=== PATIENT | female | born 1995 | race Caucasian/White ===

== ENCOUNTER 2017-12-14 13:51 | Inpatient (IN) | payer OTHER ==
--- NOTE | 2017-12-14 15:01 | XR ---
EXAMINATION TYPE: XR ankle complete RT, XR foot complete RT DATE OF EXAM: 12/14/2017 CLINICAL HISTORY: Prior osteomyelitis after bunionectomy with recurrent surgery and amputation. Right foot pain TECHNIQUE: Frontal, lateral and oblique images of the right ankle and foot are obtained. COMPARISON: None. FINDINGS: There is no acute fracture/dislocation evident in the right ankle. The ankle mortise appe ars within normal limits. There is generalized soft tissue swelling of the right foot, moderate in de gree. Postoperative changes are seen at the first metatarsal phalangeal joint with osteolytic change and heterotopic ossification. Persistent infection is not excluded. Chronic periosteal reaction and f racture healed fracture deformities are seen of the second, third, and fourth metatarsals. Partially dilatation of the fifth metatarsal and surgical absence of the fifth phalanges are noted. IMPRESSION: Postsurgical change of the first metatarsal phalangeal joint with surrounding osteophyti c change and heterotopic ossification concerning for persistent osteomyelitis. MRI could evaluate for bone marrow replacing process or three-phase nuclear medicine bone scan. Chronic healed fracture def ormities and postsurgical changes of the midfoot and forefoot.
--- NOTE | 2017-12-14 15:23 | XR ---
EXAMINATION TYPE: XR tibia fibula RT DATE OF EXAM: 12/14/2017 CLINICAL HISTORY: Right foot bone infection and right lower extremity pain. TECHNIQUE: Two views of the right leg are obtained. COMPARISON: None. FINDINGS: There is no acute fracture or dislocation seen in the right tibia or fibula. The right kn ee and ankle joints appear within normal limits. The overlying soft tissue appears unremarkable. The visualized portions of the right foot are discussed on the right foot radiographs of the same date. IMPRESSION: There is no acute fracture or dislocation seen in the right tibia or fibula.
[2017-12-14 16:02] LABS: Basophils # (A) 0.1 k/uL (0-0.2); Basophils % (A) 0 %; Eosinophils # (A) 0.2 k/uL (0-0.7); Eosinophils % (A) 1 %; HCT 40.1 % (34.0-46.0); HGB 13.2 gm/dL (11.4-16.0); Lymphocytes # (A) 1.2 k/uL (1.0-4.8); Lymphocytes % (A) 8 %; MCH 29.4 pg (25.0-35.0); MCHC 32.8 g/dL (31.0-37.0); MCV 89.6 fL (80.0-100.0); Mean Platelet Volume 7.5; Monocytes % (A) 7 %; Neutrophils % (A) 83 %; Platelet Count 206 k/uL (150-450); RBC 4.47 m/uL (3.80-5.40); RDW 14.3 % (11.5-15.5); WBC 14.6 k/uL (4.0-11.0)
[2017-12-14 16:13] LABS: Anion Gap 8 mmol/L; Blood Urea Nitrogen 19 mg/dL (7-17); C Reactive Protein 84.3 mg/L (<10.0); Calcium 9.4 mg/dL (8.4-10.2); Carbon Dioxide 27 mmol/L (22-30); Chloride 100 mmol/L (98-107); Glucose 74 mg/dL (74-99); Sodium 135 mmol/L (137-145)
--- NOTE | 2017-12-14 16:20 | ED ---
General Adult HPI <Sotero Gay - Last Filed: 12/14/17 17:00> - General Source: patient, RN notes reviewed Mode of arrival: wheelchair Limitations: physical limitation <Adis Malcolm - Last Filed: 12/14/17 17:13> - General Chief complaint: Extremity Injury, Lower Stated complaint: Foot pain Time Seen by Provider: 12/14/17 14:30 - History of Present Illness Initial comments: 22-year-old female presents to the emergency department for a chief complaint of right foot swelling 1 days. Patient has had multiple problems in that foot before including multiple breaks, bunionectomy, and "bone infection." Patient states that she has chronic swelling but has been worse in the past day and normal. Patient denies any recent injuries but states she thinks she broke it again because it is swollen. Patient denies any fevers or chills at home. Patient has no other complaints at this time including shortness of breath, chest pain, abdominal pain, nausea or vomiting, headache, or visual changes. ( Adis Malcolm) - Related Data Home Medications Medication Instructions Recorded Confirmed Pregabalin [Lyrica] 300 mg PO BID 02/17/16 12/14/17 cloNIDine HCL 0.3 mg PO AC-TID 02/17/16 12/14/17 traMADol HCL [Tramadol HCl] 50 mg PO TID-W/MEALS PRN 02/17/16 12/14/17 Previous Rx's Medication Instructions Recorded Cephalexin [Keflex] 500 mg PO Q12HR 7 Days cap 05/30/16 Allergies Allergy/AdvReac Type Severity Reaction Status Date / Time sulfamethoxazole AdvReac Unknown Verified 12/14/17 14:31 [From Bactrim] trimethoprim [From Bactrim] AdvReac Unknown Verified 12/14/17 14:31 Review of Systems ROS Other: All systems not noted in ROS Statement are negative. <Sotero Gay - Last Filed: 12/14/17 17:00> ROS Other: All systems not noted in ROS Statement are negative. <Adis Malcolm - Last Filed: 12/14/17 17:13> ROS Statement: Those systems with pertinent positive or pertinent negative responses have been documented in the HPI. Past Medical History Past Medical History: Fibromyalgia, Pneumonia Additional Past Medical History / Comment(s): carpal tunnel. "hemmerhoids way up in my intestines". poor wound healing History of Any Multi-Drug Resistant Organisms: None Reported Past Surgical History: Orthopedic Surgery Additional Past Surgical History / Comment(s): Multiple eye surgeries for corneal injury, multiple rt foot surgeries Past Anesthesia/Blood Transfusion Reactions: No Reported Reaction Past Psychological History: Anxiety, Bipolar, Depression Smoking Status: Current every day smoker Past Alcohol Use History: None Reported Past Drug Use History: Marijuana - Past Family History Mother Family Medical History: Asthma, Hypertension Brother(s) Family Medical History: Asthma <Adis Malcolm - Last Filed: 12/14/17 17:13> General Exam Limitations: physical limitation General appearance: alert, in no apparent distress Head exam: Present: atraumatic, normocephalic, normal inspection Eye exam: Present: normal appearance ENT exam: Present: normal exam, mucous membranes moist Neck exam: Present: normal inspection, full ROM. Absent: tenderness, meningismus, lymphadenopathy Respiratory exam: Present: normal lung sounds bilaterally. Absent: respiratory distress, wheezes, rales, rhonchi, stridor Cardiovascular Exam: Present: regular rate, normal rhythm, normal heart sounds. Absent: systolic murmur, diastolic murmur, rubs, gallop, clicks Extremities exam: Present: full ROM (Full range of motion of the right ankle and digits of the right foot), tenderness (Patient has diffuse tenderness of the right foot.), normal capillary refill (Refill less than 2 seconds in the right lower extremity.), joint swelling (Patient has significant swelling of the right foot no ecchymosis.), calf tenderness (Patient does have mild Tenderness. No swelling in the calf. Negative Homans sign. No redness or warmth noted in the right calf.) <Adis Malcolm - Last Filed: 12/14/17 17:13> Vital Signs 12/14/17 14:29 Temperature 98.5 F Pulse Rate 111 H Respiratory 18 Rate Blood Pressure 103/66 O2 Sat by Pulse 99 Oximetry Medical Decision Making - Lab Data Result diagrams: 12/14/17 15:45 12/14/17 15:45 <Sotero Gay - Last Filed: 12/14/17 17:00> - Lab Data Result diagrams: 12/14/17 15:45 12/14/17 15:45 <Adis Malcolm - Last Filed: 12/14/17 17:13> - Medical Decision Making Patient reevaluated by myself, Dr. Gay. X-ray and blood work reviewed. Patient reevaluated and updated. Case was discussed in detail with Dr. Amanda sandoval , who will admit for hospital call. He does request consult with orthopedics and infectious disease. Patient does meet sepsis criteria diagnosed at 1701. Blood culture and lactic acid have been ordered. IV antibiotics will be ordered. (Sotero Gay) 22-year-old female presents to the emergency determine for chief complaint of right foot swelling 3 days. Patient states she has chronic pain in the right foot from past multiple fractures, bunionectomy and "bone infections." Patient denies any recent injuries but thinks it is broken again. Temp 98.5 and pulse 111. On exam patient does have significant swelling of the right foot. Neurovascular intact. No ecchymosis noted. Patient has mild tenderness in the right calf but refuses ultrasound because she has had them before and knows she does not have a clot. X-ray of the right foot shows postsurgical change of the first metatarsal phalangeal joint with surrounding osteophytic change and heterotrophic ossification concerning for persistent osteomyelitis. There are also chronic healed fracture deformity is in the midfoot and forefoot. Persistent infection not excluded. White blood cell count 14.6. CRP 84.3. Lactic and blood culture ordered. Patient will be started on vancomycin and Rocephin. She will be admitted under Dr. Rico. (Adis Malcolm) - Lab Data Lab Results 12/14/17 12/14/17 Range/Units 15:45 15:45 WBC 14.6 H (4.0-11.0) k/uL RBC 4.47 (3.80-5.40) m/uL Hgb 13.2 (11.4-16.0) gm/dL Hct 40.1 (34.0-46.0) % MCV 89.6 (80.0-100.0) fL MCH 29.4 (25.0-35.0) pg MCHC 32.8 (31.0-37.0) g/dL RDW 14.3 (11.5-15.5) % Plt Count 206 (150-450) k/uL Neutrophils % 83 % Lymphocytes % 8 % Monocytes % 7 % Eosinophils % 1 % Basophils % 0 % Neutrophils # 12.0 H (1.3-7.7) k/uL Lymphocytes # 1.2 (1.0-4.8) k/uL Monocytes # 1.0 (0-1.0) k/uL Eosinophils # 0.2 (0-0.7) k/uL Basophils # 0.1 (0-0.2) k/uL Sodium 135 L (137-145) mmol/L Potassium 4.0 (3.5-5.1) mmol/L Chloride 100 (98-107) mmol/L Carbon Dioxide 27 (22-30) mmol/L Anion Gap 8 mmol/L BUN 19 H (7-17) mg/dL Creatinine 0.90 (0.52-1.04) mg/dL Est GFR (CKD-EPI)AfAm >90 (>60 ml/min/1.73 sqM) Est GFR (CKD-EPI)NonAf >90 (>60 ml/min/1.73 sqM) Glucose 74 (74-99) mg/dL Calcium 9.4 (8.4-10.2) mg/dL C-Reactive Protein 84.3 H (<10.0) mg/L Disposition <Sotero Gay - Last Filed: 12/14/17 17:00> Is patient prescribed a controlled substance at d/c from ED?: No Time of Disposition: 17:13 <Adis Malcolm - Last Filed: 12/14/17 17:13> Clinical Impression: Osteomyelitis Disposition: ADMITTED IP TO THIS HOSP Condition: Good Referrals: Shelley Vanessa MD [Primary Care Provider] - 1-2 days
[2017-12-14] MEDS ORDERED: ACETAMINOPHEN TAB 500 MG TAB PO STA (16:26)
[2017-12-14] MEDS ORDERED: HYDROcodone/APAP 5-325MG 1 EACH TAB PO STA (16:30)
[2017-12-14] MEDS ORDERED: SODIUM CHLORIDE 0.9% 1,000 ML IV STA (16:48)
[2017-12-14] MEDS ORDERED: VANCOMYCIN IV PER PHARMACY 1 EACH MISC MISCELLANE STA (16:48)
[2017-12-14] MEDS ORDERED: cefTRIAXone IN SWFI 2,000 MG/20 ML SYRINGE IVP STA (16:48)
[2017-12-14] MEDS ORDERED: NALOXONE 0.4 MG/ML 1 ML VIAL IV PRN ×2 (17:14→18:07)
[2017-12-14] MEDS ORDERED: MORPHINE SULFATE 2 MG/ML SYRINGE IV PRN (17:14)
[2017-12-14] MEDS ORDERED: traMADol 50 MG TAB PO PRN (17:14)
[2017-12-14] MEDS ORDERED: cefTRIAXone IN SWFI 1,000 MG/10 ML SYRINGE IVP STA (17:17)
[2017-12-14] MEDS ORDERED: VANCOMYCIN IV PER PHARMACY 1 EACH MISC MISCELLANE PRN (17:17)
[2017-12-14] MEDS ORDERED: VANCOMYCIN 1,000 MG in SODIUM CHLORIDE 0.9% 250 ML IVPB STA (17:28)
--- NOTE | 2017-12-14 18:21 | P.HPIM ---
History of Present Illness H&P Date: 12/14/17 Chief Complaint: Right foot swelling This is a 22-year-old female with past medical history of right foot osteomyelitis and surgical intervention on the foot with amputation of the fifth toe Patient states that she has been on IV antibiotics until August then these IV antibiotics has been stopped and x-rays has been done and no evidence of continued osteomyelitis of the foot Begin to have swelling in the right foot around a week ago ordered with marked has been gradually getting worse and also having pain in the right foot Review of systems and systems has been reviewed all negative and positive findings as per HPI no chest pain no shortness of breath Past Medical History: Fibromyalgia, Pneumonia Additional Past Medical History / Comment(s): carpal tunnel. "hemmerhoids way up in my intestines". poor wound healing History of Any Multi-Drug Resistant Organisms: None Reported Past Surgical History: Orthopedic Surgery Additional Past Surgical History / Comment(s): Multiple eye surgeries for corneal injury, multiple rt foot surgeries Past Anesthesia/Blood Transfusion Reactions: No Reported Reaction Past Psychological History: Anxiety, Bipolar, Depression Smoking Status: Current every day smoker Past Alcohol Use History: None Reported Past Drug Use History: Marijuana - Past Family History Mother Family Medical History: Asthma, Hypertension Brother(s) Family Medical History: Asthma Constitutional: No acute distress, conversant, pleasant Eyes: Anicteric sclerae, moist conjunctiva, ENMT: N cranial nerves grossly intact Neck: Supple, FROM, no masses, or JVD No carotid bruits No thyromegaly Lungs: Clear to auscultation Clear to percussion Normal respiratory effort, no accessory muscle use Cardiovascular: Heart regular in rate and rhythm, No murmurs, gallops, or rubs No peripheral edema Abdominal: Soft Nontender, no guarding, Skin: Normal temperature, tone, texture, turgor No induration No subcutaneous nodules No rash, lesions No ulcers Extremities: Swelling and tenderness in the right foot Psychiatric:Alert and oriented to person, place and time Appropriate affect Intact judgement Neuro: No obvious weakness Assessment and plan Right foot swelling and pain likely a recurrent osteomyelitis currently we'll check computed tomography scan of the right foot we will do an MRI on Sunday We will consult infectious disease and orthopedics Will continue the patient on vancomycin and Rocephin Pain control Fibromyalgia DVT and GI prophylaxis Admit the patient regular medical floor no evidence of sepsis at this time Past Medical History Past Medical History: Fibromyalgia, Pneumonia Additional Past Medical History / Comment(s): carpal tunnel. "hemmerhoids way up in my intestines". poor wound healing History of Any Multi-Drug Resistant Organisms: None Reported Past Surgical History: Orthopedic Surgery Additional Past Surgical History / Comment(s): Multiple eye surgeries for corneal injury, multiple rt foot surgeries Past Anesthesia/Blood Transfusion Reactions: No Reported Reaction Past Psychological History: Anxiety, Bipolar, Depression Smoking Status: Current every day smoker Past Alcohol Use History: None Reported Past Drug Use History: Marijuana - Past Family History Mother Family Medical History: Asthma, Hypertension Brother(s) Family Medical History: Asthma Medications and Allergies Home Medications Medication Instructions Recorded Confirmed Type Pregabalin [Lyrica] 300 mg PO BID 02/17/16 12/14/17 History cloNIDine HCL 0.3 mg PO AC-TID 02/17/16 12/14/17 History traMADol HCL [Tramadol HCl] 50 mg PO TID-W/MEALS PRN 02/17/16 12/14/17 History Cephalexin [Keflex] 500 mg PO Q12HR 7 Days cap 05/30/16 12/14/17 Rx Allergies Allergy/AdvReac Type Severity Reaction Status Date / Time sulfamethoxazole AdvReac Unknown Verified 12/14/17 14:31 [From Bactrim] trimethoprim [From Bactrim] AdvReac Unknown Verified 12/14/17 14:31 Physical Exam Vitals: Vital Signs Temp Pulse Resp BP Pulse Ox 12/14/17 17:00 98.8 F 97 20 109/51 98 12/14/17 14:29 98.5 F 111 H 18 103/66 99 Intake and Output 12/14/17 12/14/17 12/14/17 06:59 14:59 22:59 Other: Weight 57.606 kg Results CBC & Chem 7: 12/14/17 15:45 12/14/17 15:45 Labs: Abnormal Lab Results - Last 24 Hours (Table) 12/14/17 12/14/17 Range/Units 15:45 15:45 WBC 14.6 H (4.0-11.0) k/uL Neutrophils # 12.0 H (1.3-7.7) k/uL Sodium 135 L (137-145) mmol/L BUN 19 H (7-17) mg/dL C-Reactive Protein 84.3 H (<10.0) mg/L
--- NOTE | 2017-12-14 19:16 | CT ---
EXAMINATION TYPE: CT foot RT wo/w con DATE OF EXAM: 12/14/2017 COMPARISON: Right foot x-ray 12/14/2017 HISTORY: Right foot swelling and pain CT DLP: 515 mGycm Automated exposure control for dose reduction was used. CONTRAST: Performed with IV Contrast, patient injected with 100 mL of Isovue 300. FINDINGS: There are 2 screws fusing the first tarsometatarsal joint. There is some lucency around the screws co nsistent with movement. There is soft tissue swelling in the forefoot. There is deformity of the dist al second third and fourth metatarsals related to old healed fractures. There is been apparent excisi on of the little toe and the distal fifth metatarsal. The hindfoot appears intact. Talonavicular join t and ankle joint and subtalar joint are intact. IMPRESSION: FUSION SURGERY. LUCENCY AROUND THE HARDWARE CONSISTENT WITH MOVEMENT AND NONUNION. SOFT TISSUE SWELLI NG CONSISTENT WITH CELLULITIS. CHRONIC OSTEOMYELITIS AROUND THE HARDWARE SCREWS AT THE FIRST TARSOMET ATARSAL JOINT IS CERTAINLY POSSIBLE. I DO NOT HAVE AN OLDER POSTOPERATIVE EXAM TO COMPARE.
[2017-12-14] MEDS: SODIUM CHLORIDE 0.9% 1,000 ML IV SCH ×2 (19:36→23:24)
[2017-12-14] MEDS: MORPHINE SULFATE 2 MG/ML SYRINGE IV PRN (19:51)
--- NOTE | 2017-12-14 19:54 | P.CNOR ---
History of Present Illness - [facility] Consult date: 12/14/17 Consult reason: joint pain History of present illness: This is a 22-year-old female who was seen and evaluated today at bedside. Patient reported to [facility] with regards to increasing pain and swelling involving her right foot. The pain and swelling started 1 day ago but has gotten subsequently worse. Patient has a very extensive medical and surgical history involving the right foot. When providing the past medical history for her foot problem, she was unsure on some of the exact diagnosis is and timeframes. From what I could gather, patient had an initial bunionectomy surgery done in January 2017, there also was an initial procedure done at that time involving the tendon and the posterior ankle along with a wound closure procedure involving the right fifth metatarsal region. After the surgery, there was an infection that did develop involving the right wound on the fifth metatarsal area. She was treated with IV antibiotics for quite some time, and underwent multiple irrigation and debridement procedures. She ended up having a partial limitation of the fifth metatarsal and limitation of the fifth phalanges. She states the last time she saw her operating surgeon was 2 or 3 months ago, when she was doing fairly well at that time. Since the surgeries began on her right foot, she has developed a foot drop. She utilizes a brace for that. She has a history of fibromyalgia and other medical problems. Exam of bedside today, patient notes more the discomfort on the medial and plantar aspect of the foot. She states most the pain is when she ambulates, but she feels the fibromyalgia is making the pain worse. She denies any recent trauma. She states that she has been hot and cold over the last day or 2. She currently is not taking any antibiotics. Review of Systems Constitutional: Reports as per HPI Past Medical History Past Medical History: Fibromyalgia, Pneumonia Additional Past Medical History / Comment(s): carpal tunnel. "hemmerhoids way up in my intestines". poor wound healing History of Any Multi-Drug Resistant Organisms: None Reported Past Surgical History: Orthopedic Surgery Additional Past Surgical History / Comment(s): Multiple eye surgeries for corneal injury, multiple rt foot surgeries Past Anesthesia/Blood Transfusion Reactions: No Reported Reaction Past Psychological History: Anxiety, Bipolar, Depression Smoking Status: Current every day smoker Past Alcohol Use History: None Reported Past Drug Use History: Marijuana - Past Family History Mother Family Medical History: Asthma, Hypertension Brother(s) Family Medical History: Asthma Medications and Allergies Home Medications Medication Instructions Recorded Confirmed Type Pregabalin [Lyrica] 300 mg PO BID 02/17/16 12/14/17 History traMADol HCL [Tramadol HCl] 50 mg PO TID-W/MEALS PRN 02/17/16 12/14/17 History Ascorbic Acid [Vitamin C] 1,000 mg PO DAILY 12/14/17 12/14/17 History Biotin 5 mg PO DAILY 12/14/17 12/14/17 History Cholecalciferol (Vitamin D3) 2,000 unit PO DAILY 12/14/17 12/14/17 History [Vitamin D3] Cyclobenzaprine [Flexeril] 10 mg PO TID PRN 12/14/17 12/14/17 History Ibuprofen [Motrin] 800 mg PO TID PRN 12/14/17 12/14/17 History Pyridoxine HCl (Vitamin B6) 100 mg PO DAILY 12/14/17 12/14/17 History [Vitamin B-6] Allergies Allergy/AdvReac Type Severity Reaction Status Date / Time bacitracin Allergy Rash/Hives Verified 12/14/17 18:57 cephalexin [From Keflex] Allergy Rash/Hives Verified 12/14/17 18:57 sulfamethoxazole Allergy Rash/Hives Verified 12/14/17 18:57 [From Bactrim] trimethoprim [From Bactrim] Allergy Rash/Hives Verified 12/14/17 18:57 Physical Examination Right lower extremity: No obvious open lesions or sores are visualized involving the foot multiple surgical scars present, over the fifth metatarsal region, and also over the dorsal aspect of the first metatarsal. Obvious swelling present over the dorsal aspect of the midfoot., I'm unable to appreciate any fluctuance in the region, there is also some erythema present She is able to wiggle the toes with minimal difficulty that she does not more tenderness with palpation on the medial aspect of the first metatarsal region, and this also extends into the plantar surface. I'm unable to appreciate any areas of fluctuance, no significant areas of erythema. Nontender with palpation on the medial and lateral malleolus. Her capillary refill is less than 3 seconds, her sensory exam to light touch is intact Results - Labs Labs: Abnormal Lab Results - Last 24 Hours (Table) 12/14/17 12/14/17 Range/Units 15:45 15:45 WBC 14.6 H (4.0-11.0) k/uL Neutrophils # 12.0 H (1.3-7.7) k/uL Sodium 135 L (137-145) mmol/L BUN 19 H (7-17) mg/dL C-Reactive Protein 84.3 H (<10.0) mg/L H & H 12/14/17 Range/Units 15:45 Hgb 13.2 (11.4-16.0) gm/dL Hct 40.1 (34.0-46.0) % Result Diagrams: 12/14/17 15:45 12/14/17 15:45 - Diagnostic results Ankle/Foot MRI: report reviewed, image reviewed Ankle/Foot CT: report reviewed, image reviewed Assessment and Plan Plan: Imaging: Multiple images were taken of the right foot and ankle region, including x-rays and the computed tomography scan. Images demonstrate likely loosening of the bunion hardware. Images also revealed healed fractures involving the second and fourth metatarsals. Evidence of the previous dictation above and the fifth metatarsals also present. There were concerns on the computed tomography scan involving chronic osteomyelitis. Assessment: Right foot pain and swelling Right foot cellulitis Likely chronic right foot osteomyelitis History of multiple surgeries involving right foot, partial amputation right fifth metatarsal Plan: I was able to discuss the case, including but physical exam findings and imaging studies with my attending physician Dr. Shetty. Due to the extensive history involving this right foot, we do recommend transfer to a tertiary care facility. More specifically, the hospital where the patient underwent the first procedure. She believes this is at [facility] in [place]. Dr. Jose D Haile was the field trainer who has performed the surgeries Patient is unable to be transferred directly to the tertiary care facility, we recommend immediate infectious disease evaluation and likely begin of IV antibiotics. We then would recommend immediate follow-up as soon as she can with Dr. Jose D Haile for further evaluation and treatment. No general orthopedic surgical intervention at this time Pain control Medical recommendations We will be available for any further recommendations regarding this patient Time with Patient: Less than 30
--- NOTE | 2017-12-14 21:01 | P.DS ---
Providers Date of admission: 12/14/17 17:01 Visit 22-year-old female with recurrent admissions to the hospital with osteomyelitis all the right foot was admitted again to the hospital with right foot osteomyelitis orthopedic recommended that the patient needs to be transferred back to [facility] When the patient did have her surgeries Constitutional: No acute distress, conversant, pleasant Eyes: Anicteric sclerae, moist conjunctiva, no lid-lag PERRLA ENMT: NC/AT Oropharynx clear, no erythema, exudates Neck: Supple, FROM, no masses, or JVD No carotid bruits No thyromegaly Lungs: Clear to auscultation Clear to percussion Normal respiratory effort, no accessory muscle use Cardiovascular: Heart regular in rate and rhythm, No murmurs, gallops, or rubs No peripheral edema Abdominal: Soft Nontender, no guarding, rebound or rigidity Abdomen moving with respiration Normoactive bowel sounds No hepatomegaly, No splenomegaly No palpable mass No abdominal wall hernia noted Skin: Normal temperature, tone, texture, turgor No induration No subcutaneous nodules No rash, lesions No ulcers Extremities: No digital cyanosis No clubbing Pedal pulses intact and symmetrical Radial pulses intact and symmetrical Normal gait and station No calf tenderness Psychiatric:Alert and oriented to person, place and time Appropriate affect Intact judgement Neuro: Assessment and plan please refer to the H&P dictated on the same day This is 22-year-old female with recurrent also mellitus of the right foot we will continue patient on vancomycin and patient also will be transferred to have level of care pain control Fibromyalgia Again please refer to the H&P dictated on the same day of discharge thank you Attending physician: Alton Rico MD Consults: 12/14/17 17:01 Consult Physician Urgent Consulting Provider: Jose Burrows Consult Reason/Comments: Evaluate for osteomyelitis Do you want consulting provider notified?: Yes 12/14/17 17:02 Consult Physician Urgent Consulting Provider: Gigi Shetty Consult Reason/Comments: Evaluate for osteomyelitis Do you want consulting provider notified?: Yes Primary care physician: Shelley Vanessa Patient Condition at Discharge: Good Plan - Discharge Summary Discharge Rx Participant: No New Discharge Prescriptions: New Acetaminophen Tab [Tylenol] 650 mg PO Q6HR PRN tab PRN Reason: Mild Pain Or Fever > 100.5 cefTRIAXone [Rocephin] 2,000 mg IVP Q24H syringe Enoxaparin [Lovenox] 30 mg SQ DAILY syringe HYDROcodone/APAP 5-325MG [Elma 5-325] 1 each PO Q4HR PRN tab PRN Reason: Moderate Pain Ibuprofen [Motrin] 400 mg PO Q6HR PRN tab PRN Reason: Mild Pain Or Fever > 100.5 Nicotine 14Mg/24Hr Patch [Habitrol] 1 patch TRANSDERM DAILY patch Ondansetron [Zofran] 4 mg IVP Q8HR PRN vial PRN Reason: Nausea And Vomiting traMADol HCl [Ultram] 50 mg PO Q6H PRN tab PRN Reason: Moderate Pain Vancomycin 1,000 mg IVPB Q12H vial Continue traMADol HCL [Tramadol HCl] 50 mg PO TID-W/MEALS PRN PRN Reason: Pain Pregabalin [Lyrica] 300 mg PO BID Ibuprofen [Motrin] 800 mg PO TID PRN PRN Reason: Pain Cholecalciferol (Vitamin D3) [Vitamin D3] 2,000 unit PO DAILY Biotin 5 mg PO DAILY Ascorbic Acid [Vitamin C] 1,000 mg PO DAILY Cyclobenzaprine [Flexeril] 10 mg PO TID PRN PRN Reason: Muscle Spasm Pyridoxine HCl (Vitamin B6) [Vitamin B-6] 100 mg PO DAILY Discharge Medication List Pregabalin [Lyrica] 300 mg PO BID 02/17/16 [History] traMADol HCL [Tramadol HCl] 50 mg PO TID-W/MEALS PRN 02/17/16 [History] Acetaminophen Tab [Tylenol] 650 mg PO Q6HR PRN tab 12/14/17 [Rx] Ascorbic Acid [Vitamin C] 1,000 mg PO DAILY 12/14/17 [History] Biotin 5 mg PO DAILY 12/14/17 [History] Cholecalciferol (Vitamin D3) [Vitamin D3] 2,000 unit PO DAILY 12/14/17 [History] Cyclobenzaprine [Flexeril] 10 mg PO TID PRN 12/14/17 [History] Enoxaparin [Lovenox] 30 mg SQ DAILY syringe 12/14/17 [Rx] HYDROcodone/APAP 5-325MG [Elma 5-325] 1 each PO Q4HR PRN tab 12/14/17 [Rx] Ibuprofen [Motrin] 400 mg PO Q6HR PRN tab 12/14/17 [Rx] Ibuprofen [Motrin] 800 mg PO TID PRN 12/14/17 [History] Nicotine 14Mg/24Hr Patch [Habitrol] 1 patch TRANSDERM DAILY patch 12/14/17 [Rx] Ondansetron [Zofran] 4 mg IVP Q8HR PRN vial 12/14/17 [Rx] Pyridoxine HCl (Vitamin B6) [Vitamin B-6] 100 mg PO DAILY 12/14/17 [History] Vancomycin 1,000 mg IVPB Q12H vial 12/14/17 [Rx] cefTRIAXone [Rocephin] 2,000 mg IVP Q24H syringe 12/14/17 [Rx] traMADol HCl [Ultram] 50 mg PO Q6H PRN tab 12/14/17 [Rx] Follow up Appointment(s)/Referral(s): Shelley Vanessa MD [Primary Care Provider] - 1-2 days Discharge Disposition: OTHER INSTITUTION NOT DEFINED
[2017-12-14] MEDS: ONDANSETRON 4 MG/2 ML VIAL IVP PRN (23:17)
[2017-12-14] MEDS: ACETAMINOPHEN TAB 325 MG TAB PO PRN (23:23)
[2017-12-15] MEDS: MORPHINE SULFATE 2 MG/ML SYRINGE IV PRN ×2 (02:19→23:59)
[2017-12-15] MEDS: HYDROcodone/APAP 5-325MG 1 EACH TAB PO PRN ×3 (04:17→21:31)
[2017-12-15] MEDS ORDERED: VANCOMYCIN 1,000 MG in SODIUM CHLORIDE 0.9% 250 ML IVPB SCH (06:00)
[2017-12-15] MEDS: SODIUM CHLORIDE 0.9% 1,000 ML IV SCH ×3 (06:23→21:34)
[2017-12-15] MEDS: IBUPROFEN 400 MG TAB PO PRN ×2 (07:38→13:55)
[2017-12-15 08:04] LABS: Basophils % (A) 0 %; Eosinophils # (A) 0.1 k/uL (0-0.7); Eosinophils % (A) 0 %; HCT 35.4 % (34.0-46.0); HGB 11.4 gm/dL (11.4-16.0); Lymphocytes # (A) 1.4 k/uL (1.0-4.8); Lymphocytes % (A) 9 %; MCH 29.3 pg (25.0-35.0); MCHC 32.1 g/dL (31.0-37.0); MCV 91.4 fL (80.0-100.0); Mean Platelet Volume 7.8; Monocytes % (A) 7 %; Neutrophils % (A) 83 %; Platelet Count 209 k/uL (150-450); RBC 3.87 m/uL (3.80-5.40); RDW 14.1 % (11.5-15.5); WBC 15.8 k/uL (4.0-11.0)
[2017-12-15 08:14] LABS: ALT 28 U/L (9-52); AST 24 U/L (14-36); Albumin 3.4 g/dL (3.5-5.0); Alkaline Phosphatase 66 U/L (38-126); Anion Gap 11 mmol/L; Blood Urea Nitrogen 12 mg/dL (7-17); Calcium 8.8 mg/dL (8.4-10.2); Carbon Dioxide 23 mmol/L (22-30); Chloride 105 mmol/L (98-107); Glucose 64 mg/dL (74-99); Potassium 4.1 mmol/L (3.5-5.1); Sodium 139 mmol/L (137-145); Total Bilirubin 0.4 mg/dL (0.2-1.3); Total Protein 5.5 g/dL (6.3-8.2)
[2017-12-15] MEDS: ENOXAPARIN 30 MG/0.3 ML SYRINGE SQ SCH (08:29)
[2017-12-15] MEDS: NICOTINE 14MG/24HR PATCH TRANSDERM SCH (08:52)
--- NOTE | 2017-12-15 11:01 | P.PN ---
Subjective Progress Note Date: 12/15/17 Principal diagnosis: Patient still complaining of right foot pain No chest pain or shortness of breath Constitutional: No acute distress, conversant, pleasant Eyes: Anicteric sclerae, moist conjunctiva, ENMT: N cranial nerves grossly intact Neck: Supple, FROM, no masses, or JVD No carotid bruits No thyromegaly Lungs: Clear to auscultation Clear to percussion Normal respiratory effort, no accessory muscle use Cardiovascular: Heart regular in rate and rhythm, No murmurs, gallops, or rubs No peripheral edema Abdominal: Soft Nontender, no guarding, Skin: Normal temperature, tone, texture, turgor No induration No subcutaneous nodules No rash, lesions No ulcers Extremities: Swelling and tenderness in the right foot Psychiatric:Alert and oriented to person, place and time Appropriate affect Intact judgement Neuro: No obvious weakness Assessment and plan Right foot swelling and pain likely a recurrent osteomyelitis still awaiting transferred to [facility] has been accepted by a physician there Orthopedics and ID has been consulted Will continue the patient on vancomycin and Rocephin Pain control Fibromyalgia DVT and GI prophylaxis Continue patient on vancomycin and Merrem Vital Signs - 24 hr 12/14/17 12/14/17 12/14/17 14:29 17:00 18:00 Temperature 98.5 F 98.8 F 98.9 F Pulse Rate 111 H 97 96 Pulse Rate [ Left] Pulse Rate [ Right Dorsalis Pedis] Respiratory 18 20 20 Rate Blood Pressure 103/66 109/51 110/56 Blood Pressure [Right Arm] O2 Sat by Pulse 99 98 99 Oximetry 12/14/17 12/14/17 12/15/17 19:40 22:45 07:34 Temperature 97.0 F L 98.4 F 96.6 F L Pulse Rate Pulse Rate [ 93 Left] Pulse Rate [ 90 60 Right Dorsalis Pedis] Respiratory 16 16 18 Rate Blood Pressure Blood Pressure 109/64 109/64 102/56 [Right Arm] O2 Sat by Pulse 98 98 97 Oximetry Laboratory Results - last 24 hr 12/14/17 12/14/17 12/14/17 15:45 15:45 17:05 WBC 14.6 H RBC 4.47 Hgb 13.2 Hct 40.1 MCV 89.6 MCH 29.4 MCHC 32.8 RDW 14.3 Plt Count 206 Neutrophils % 83 Lymphocytes % 8 Monocytes % 7 Eosinophils % 1 Basophils % 0 Neutrophils # 12.0 H Lymphocytes # 1.2 Monocytes # 1.0 Eosinophils # 0.2 Basophils # 0.1 Sodium 135 L Potassium 4.0 Chloride 100 Carbon Dioxide 27 Anion Gap 8 BUN 19 H Creatinine 0.90 Est GFR (CKD-EPI)AfAm >90 Est GFR (CKD-EPI)NonAf >90 Glucose 74 Plasma Lactic Acid Bijan 0.7 Calcium 9.4 Total Bilirubin AST ALT Alkaline Phosphatase C-Reactive Protein 84.3 H Total Protein Albumin 12/15/17 12/15/17 07:37 07:37 WBC 15.8 H RBC 3.87 Hgb 11.4 Hct 35.4 MCV 91.4 MCH 29.3 MCHC 32.1 RDW 14.1 Plt Count 209 Neutrophils % 83 Lymphocytes % 9 Monocytes % 7 Eosinophils % 0 Basophils % 0 Neutrophils # 13.0 H Lymphocytes # 1.4 Monocytes # 1.0 Eosinophils # 0.1 Basophils # 0.0 Sodium 139 Potassium 4.1 Chloride 105 Carbon Dioxide 23 Anion Gap 11 BUN 12 Creatinine 0.80 Est GFR (CKD-EPI)AfAm >90 Est GFR (CKD-EPI)NonAf >90 Glucose 64 L Plasma Lactic Acid Bijan Calcium 8.8 Total Bilirubin 0.4 AST 24 ALT 28 Alkaline Phosphatase 66 C-Reactive Protein Total Protein 5.5 L Albumin 3.4 L Objective - Vital Signs Vital signs: Vital Signs Temp 96.6 F L 12/15/17 07:34 Pulse 93 12/15/17 07:34 Resp 18 12/15/17 07:34 BP 102/56 12/15/17 07:34 Pulse Ox 97 12/15/17 07:34 Intake & Output 12/14/17 12/15/17 12/15/17 18:59 06:59 18:59 Intake Total 100 Balance 100 Weight 57.606 kg Intake: Oral 100 Other: # Voids 1 - Labs CBC & Chem 7: 12/15/17 07:37 12/15/17 07:37 Labs: Abnormal Lab Results - Last 24 Hours (Table) 12/14/17 12/14/17 12/15/17 Range/Units 15:45 15:45 07:37 WBC 14.6 H 15.8 H (4.0-11.0) k/uL Neutrophils # 12.0 H 13.0 H (1.3-7.7) k/uL Sodium 135 L (137-145) mmol/L BUN 19 H (7-17) mg/dL Glucose (74-99) mg/dL C-Reactive Protein 84.3 H (<10.0) mg/L Total Protein (6.3-8.2) g/dL Albumin (3.5-5.0) g/dL 12/15/17 Range/Units 07:37 WBC (4.0-11.0) k/uL Neutrophils # (1.3-7.7) k/uL Sodium (137-145) mmol/L BUN (7-17) mg/dL Glucose 64 L (74-99) mg/dL C-Reactive Protein (<10.0) mg/L Total Protein 5.5 L (6.3-8.2) g/dL Albumin 3.4 L (3.5-5.0) g/dL Microbiology - Last 24 Hours (Table) 12/14/17 15:45 Blood Culture - Final Blood
[2017-12-15] MEDS: ONDANSETRON 4 MG/2 ML VIAL IVP PRN (13:17)
[2017-12-15] MEDS: MEROPENEM 500 MG in SODIUM CHLORIDE 0.9% 50 ML IVPB SCH ×2 (14:02→21:30)
[2017-12-15] MEDS: VANCOMYCIN 1,000 MG in SODIUM CHLORIDE 0.9% 250 ML IVPB SCH ×2 (15:09→22:56)
[2017-12-15] MEDS: ACETAMINOPHEN TAB 325 MG TAB PO PRN (17:32)
[2017-12-15] MEDS ORDERED: cefTRIAXone IN SWFI 2,000 MG/20 ML SYRINGE IVP SCH (18:00)
--- NOTE | 2017-12-15 23:43 | P.CONS ---
History of Present Illness - Reason for Consult Consult date: 12/15/17 - Chief Complaint Fever - History of Present Illness 22-year-old woman who has a known history of a complicated progressive process to her right foot. The patient relates that she was having chronic foot pain and was seen by podiatry. 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 It actually was present for quite a bit of time. Eventually she was seen by podiatry. She had significant difficulty with some foot deformity and consequently a bunionectomy was performed and screws were placed into the first metatarsal area. She apparently had some debridements to the chronic plantar ulceration. She also had a tendon lengthening procedure try to improve the balance of the foot and reduce the ulceration. It appears that all these surgeries eventually failed and she ended up with a fifth toe ray amputation of the right foot. She relates until a short period of time ago she had been on a course of intravenous antibiotic therapy. She was treated until the foot improved and she relates her blood work looked good. After the antibiotics were complete her IV access was removed and she was to follow with podiatry. However she's now developed the symptoms of swelling erythema pain to the right foot associated with some fever and chills. She relates that she's had great difficulties with infections over her life. She apparently has had difficulties with gastrointestinal infections and sepsis, and several skin and soft tissue infections over the years. She however denies having meningitis or multiple bouts of pneumonia. She is short in stature, but does have a heritage. Denies other family members having similar troubles as she does. Review of Systems 22-year-old woman who relates she feels quite poorly. She's had some fever and chill in the significant pain to her foot as above. HEENT:Denies headache or acute visual change. Denies sinus or mouth discomforts. Denies neck stiffness or pain. Denies significant oral cavity pain. Denies difficulty on swallowing. Lungs: Denies significant shortness of breath, cough, sputum production, or hemoptysis. Cardiovascular: Denies significant shortness of breath, chest pain, chest wall pain, orthopnea, dyspnea on exertion, syncope Gastrointestinal:Denies nausea, vomiting, diarrhea, constipation, hematemesis, melena, hematochezia. No no significant change of bowel habit noticed. Musculoskeletal: Significant pain and swelling to the right foot as per the HPI. No current open ulcers or drainage Skin: Denies new rash or lesions. No new ulcers or wounds are related.. Neuro: Relates she's had some headaches and has pain with ambulation but no acute neurological problems Psychiatric: He has difficulties with anxiety but not chronic depression Endocrine: She has fibromyalgia and this causes severe fatigue and some generalized pain syndrome Past Medical History Past Medical History: Fibromyalgia, Pneumonia Additional Past Medical History / Comment(s): carpal tunnel. "hemmerhoids way up in my intestines". poor wound healing History of Any Multi-Drug Resistant Organisms: None Reported Past Surgical History: Orthopedic Surgery Additional Past Surgical History / Comment(s): Multiple eye surgeries for corneal injury, multiple rt foot surgeries Past Anesthesia/Blood Transfusion Reactions: No Reported Reaction Past Psychological History: Anxiety, Bipolar, Depression Additional Psychological History / Comment(s): She is a single mother lives with her family who help her out with the care of the child. She is an ongoing tobacco smoker at this time. She denies injection drug use. She denies international travel, has never been to [facility]. There are no pets in the home. She has no experience. She is not able to work outside of the home Smoking Status: Current every day smoker Past Alcohol Use History: None Reported Past Drug Use History: Marijuana - Past Family History Mother Family Medical History: Asthma, Hypertension Brother(s) Family Medical History: Asthma Medications and Allergies Home Medications and Allergies Comment(s): Laboratory Results WBC 15.8 k/uL (4.0-11.0) H 12/15/17 07:37 RBC 3.87 m/uL (3.80-5.40) 12/15/17 07:37 Hgb 11.4 gm/dL (11.4-16.0) 12/15/17 07:37 Hct 35.4 % (34.0-46.0) 12/15/17 07:37 MCV 91.4 fL (80.0-100.0) 12/15/17 07:37 MCH 29.3 pg (25.0-35.0) 12/15/17 07:37 MCHC 32.1 g/dL (31.0-37.0) 12/15/17 07:37 RDW 14.1 % (11.5-15.5) 12/15/17 07:37 Plt Count 209 k/uL (150-450) 12/15/17 07:37 Neutrophils % 83 % 12/15/17 07:37 Lymphocytes % 9 % 12/15/17 07:37 Monocytes % 7 % 12/15/17 07:37 Eosinophils % 0 % 12/15/17 07:37 Basophils % 0 % 12/15/17 07:37 Neutrophils # 13.0 k/uL (1.3-7.7) H 12/15/17 07:37 Lymphocytes # 1.4 k/uL (1.0-4.8) 12/15/17 07:37 Monocytes # 1.0 k/uL (0-1.0) 12/15/17 07:37 Eosinophils # 0.1 k/uL (0-0.7) 12/15/17 07:37 Basophils # 0.0 k/uL (0-0.2) 12/15/17 07:37 Sodium 139 mmol/L (137-145) 12/15/17 07:37 Potassium 4.1 mmol/L (3.5-5.1) 12/15/17 07:37 Chloride 105 mmol/L (98-107) 12/15/17 07:37 Carbon Dioxide 23 mmol/L (22-30) 12/15/17 07:37 Anion Gap 11 mmol/L 12/15/17 07:37 BUN 12 mg/dL (7-17) 12/15/17 07:37 Creatinine 0.80 mg/dL (0.52-1.04) 12/15/17 07:37 Est GFR (CKD-EPI)AfAm >90 (>60 ml/min/1.73 sqM) 12/15/17 07:37 Est GFR (CKD-EPI)NonAf >90 (>60 ml/min/1.73 sqM) 12/15/17 07:37 Glucose 64 mg/dL (74-99) L 12/15/17 07:37 Plasma Lactic Acid Bijan 0.7 mmol/L (0.7-2.0) 12/14/17 17:05 Calcium 8.8 mg/dL (8.4-10.2) 12/15/17 07:37 Total Bilirubin 0.4 mg/dL (0.2-1.3) 12/15/17 07:37 AST 24 U/L (14-36) 12/15/17 07:37 ALT 28 U/L (9-52) 12/15/17 07:37 Alkaline Phosphatase 66 U/L (38-126) 12/15/17 07:37 C-Reactive Protein 84.3 mg/L (<10.0) H 12/14/17 15:45 Total Protein 5.5 g/dL (6.3-8.2) L 12/15/17 07:37 Albumin 3.4 g/dL (3.5-5.0) L 12/15/17 07:37 Home Medications Medication Instructions Recorded Confirmed Type Pregabalin [Lyrica] 300 mg PO BID 02/17/16 12/14/17 History traMADol HCL [Tramadol HCl] 50 mg PO TID-W/MEALS PRN 02/17/16 12/14/17 History Acetaminophen Tab [Tylenol] 650 mg PO Q6HR PRN tab 12/14/17 Rx Ascorbic Acid [Vitamin C] 1,000 mg PO DAILY 12/14/17 12/14/17 History Biotin 5 mg PO DAILY 12/14/17 12/14/17 History Cholecalciferol (Vitamin D3) 2,000 unit PO DAILY 12/14/17 12/14/17 History [Vitamin D3] Cyclobenzaprine [Flexeril] 10 mg PO TID PRN 12/14/17 12/14/17 History Enoxaparin [Lovenox] 30 mg SQ DAILY syringe 12/14/17 Rx HYDROcodone/APAP 5-325MG [Williams 1 each PO Q4HR PRN tab 12/14/17 Rx 5-325] Ibuprofen [Motrin] 400 mg PO Q6HR PRN tab 12/14/17 Rx Ibuprofen [Motrin] 800 mg PO TID PRN 12/14/17 12/14/17 History Nicotine 14Mg/24Hr Patch [Habitrol] 1 patch TRANSDERM DAILY patch 12/14/17 Rx Ondansetron [Zofran] 4 mg IVP Q8HR PRN vial 12/14/17 Rx Pyridoxine HCl (Vitamin B6) 100 mg PO DAILY 12/14/17 12/14/17 History [Vitamin B-6] Vancomycin 1,000 mg IVPB Q12H vial 12/14/17 Rx cefTRIAXone [Rocephin] 2,000 mg IVP Q24H syringe 12/14/17 Rx traMADol HCl [Ultram] 50 mg PO Q6H PRN tab 12/14/17 Rx Allergies Allergy/AdvReac Type Severity Reaction Status Date / Time bacitracin Allergy Rash/Hives Verified 12/14/17 18:57 cephalexin [From Keflex] Allergy Rash/Hives Verified 12/14/17 18:57 sulfamethoxazole Allergy Rash/Hives Verified 12/14/17 18:57 [From Bactrim] trimethoprim [From Bactrim] Allergy Rash/Hives Verified 12/14/17 18:57 Physical Exam Vitals: Vital Signs Temp Pulse Resp BP Pulse Ox 12/15/17 15:00 97.1 F L 90 17 115/58 97 12/15/17 07:34 96.6 F L 93 18 102/56 97 Intake and Output 12/15/17 12/15/17 12/16/17 14:59 22:59 06:59 Intake Total 1150 Output Total 50 Balance 1150 -50 Intake: Intake, IV Titration 1150 Amount Sodium Chloride 0.9% 1, 900 000 ml @ 150 mls/hr IV . Q6H40M [facility] Rx#:[id number] Vancomycin 1,000 mg In 250 Sodium Chloride 0.9% 250 ml @ 125 mls/hr IVPB Q8H [facility] Rx#:[id number] Output: Emesis 50 Other: # Voids 1 1 22-year-old female presents to Hospital feeling poorly with severe pain and swelling to her right foot. HEENT: Anicteric conjunctiva are pink and moist nasal mucosa grossly intact without significant lesions, there is no thrush. Dentition is not excellent for age Neck: The neck is supple without significant lymphadenopathy or thyromegaly. Lungs: There is symmetrical air entry, there is evidence of her expiratory wheeze but no jennifer bronchial sounds, no dullness or egophony. Heart: Regular rate and rhythm with an audible S1-S2, no S3 no S4. There is no significant murmur click or rub, PMI was nondisplaced. Abdomen: Positive bowel sounds soft and nontender without palpable masses or organomegaly. There was no guarding or rebound. Extremities: The upper extremities show the IV site without difficulties and no lesions of the upper extremities are noted. The left leg and foot are intact. The right lower extremities shows evidence of the amputation site to the fifth toe which is well-healed. Over the first metatarsal head and great toe is significant swelling and warmth and mild erythema. This area is distinctly tender on manipulation. The site is mildly indurated but it is not fluctuant. There is excellent capillary refill Neuro: Awake alert oriented to person place and time. There are no acute new gross focal sensory motor deficits. Results CBC & Chem 7: 12/15/17 07:37 12/15/17 07:37 Labs: Abnormal Lab Results - Last 24 Hours (Table) 12/15/17 12/15/17 Range/Units 07:37 07:37 WBC 15.8 H (4.0-11.0) k/uL Neutrophils # 13.0 H (1.3-7.7) k/uL Glucose 64 L (74-99) mg/dL Total Protein 5.5 L (6.3-8.2) g/dL Albumin 3.4 L (3.5-5.0) g/dL Microbiology - Last 24 Hours (Table) 12/14/17 15:45 Blood Culture Gram Stain - Preliminary Blood 12/14/17 15:45 Blood Culture - Final Blood Laboratory Results WBC 15.8 k/uL (4.0-11.0) H 12/15/17 07:37 RBC 3.87 m/uL (3.80-5.40) 12/15/17 07:37 Hgb 11.4 gm/dL (11.4-16.0) 12/15/17 07:37 Hct 35.4 % (34.0-46.0) 12/15/17 07:37 MCV 91.4 fL (80.0-100.0) 12/15/17 07:37 MCH 29.3 pg (25.0-35.0) 12/15/17 07:37 MCHC 32.1 g/dL (31.0-37.0) 12/15/17 07:37 RDW 14.1 % (11.5-15.5) 12/15/17 07:37 Plt Count 209 k/uL (150-450) 12/15/17 07:37 Neutrophils % 83 % 12/15/17 07:37 Lymphocytes % 9 % 12/15/17 07:37 Monocytes % 7 % 12/15/17 07:37 Eosinophils % 0 % 12/15/17 07:37 Basophils % 0 % 12/15/17 07:37 Neutrophils # 13.0 k/uL (1.3-7.7) H 12/15/17 07:37 Lymphocytes # 1.4 k/uL (1.0-4.8) 12/15/17 07:37 Monocytes # 1.0 k/uL (0-1.0) 12/15/17 07:37 Eosinophils # 0.1 k/uL (0-0.7) 12/15/17 07:37 Basophils # 0.0 k/uL (0-0.2) 12/15/17 07:37 Sodium 139 mmol/L (137-145) 12/15/17 07:37 Potassium 4.1 mmol/L (3.5-5.1) 12/15/17 07:37 Chloride 105 mmol/L (98-107) 12/15/17 07:37 Carbon Dioxide 23 mmol/L (22-30) 12/15/17 07:37 Anion Gap 11 mmol/L 12/15/17 07:37 BUN 12 mg/dL (7-17) 12/15/17 07:37 Creatinine 0.80 mg/dL (0.52-1.04) 12/15/17 07:37 Est GFR (CKD-EPI)AfAm >90 (>60 ml/min/1.73 sqM) 12/15/17 07:37 Est GFR (CKD-EPI)NonAf >90 (>60 ml/min/1.73 sqM) 12/15/17 07:37 Glucose 64 mg/dL (74-99) L 12/15/17 07:37 Plasma Lactic Acid Bijan 0.7 mmol/L (0.7-2.0) 12/14/17 17:05 Calcium 8.8 mg/dL (8.4-10.2) 12/15/17 07:37 Total Bilirubin 0.4 mg/dL (0.2-1.3) 12/15/17 07:37 AST 24 U/L (14-36) 12/15/17 07:37 ALT 28 U/L (9-52) 12/15/17 07:37 Alkaline Phosphatase 66 U/L (38-126) 12/15/17 07:37 C-Reactive Protein 84.3 mg/L (<10.0) H 12/14/17 15:45 Total Protein 5.5 g/dL (6.3-8.2) L 12/15/17 07:37 Albumin 3.4 g/dL (3.5-5.0) L 12/15/17 07:37 Microbiology 12/14/17 15:45 Blood Blood Culture Gram Stain - Preliminary 12/14/17 15:45 Blood Blood Culture - Final Assessment and Plan (1) Osteomyelitis Narrative/Plan: 22-year-old female who has an extensive past medical history regarding the infections that she has been suffering from from her right foot. She has great difficulties with some deformity to the foot has undergone multiple surgical procedures. She had a significant ulceration that resulted in the rehabilitation to the fifth toe and metatarsal. If it seems to be well- healed but is now having significant swelling pain and erythema to the first metatarsal area where she has had hardware placed for fixation. Imaging studies as noted reveal evidence of lucency around the hardware strongly consistent with underlying infection. Cultures are pending at this point in time, and apparently there is some data that is yet to be fully obtained there revealed that meropenem and vancomycin are adequate choices until we have further data. He has never there is a positive blood culture which will certainly help delineate the course of outpatient intravenous antibiotic therapy. There is notation that she is to be transferred to an outside hospital to receive further intervention. Potentially however we'll need to set up her outpatient antibiotic therapy and then outpatient follow-up with the surgeon at that time. We will need to have negative blood cultures so that IV access can be placed. Does appear that a gram-positive has been found that her blood that we'll likely correlate very well with significant infection of her foot. Orthopedics has evaluated, await their input as to potential specialty boot she should be wearing at the time of discharge, and if she should be utilizing a Roll-A-Bout. We'll try to enhance her nutrition her protein intake. We discussed at great length smoking and the importance of smoking cessation in her situation to allow bony healing. Wellbutrin is added to her regimen to which hopefully will assist her along with the nicotine patch to become a successful nonsmoker Current Visit: Yes Status: Acute Code(s): M86.9 - OSTEOMYELITIS, UNSPECIFIED SNOMED Code(s): 52381122 (2) Leukocytosis Current Visit: No Status: Acute Code(s): D72.829 - ELEVATED WHITE BLOOD CELL COUNT, UNSPECIFIED SNOMED Code(s): 442385380 (3) Fibromyalgia Current Visit: No Status: Acute Code(s): M79.7 - FIBROMYALGIA SNOMED Code( s): 993928187
[2017-12-15] MEDS: buPROPion SR 100 MG TABLET.ER PO SCH (23:56)
[2017-12-16] MEDS: MEROPENEM 500 MG in SODIUM CHLORIDE 0.9% 50 ML IVPB SCH ×3 (03:40→19:58)
[2017-12-16] MEDS: HYDROcodone/APAP 5-325MG 1 EACH TAB PO PRN ×2 (03:41→17:23)
[2017-12-16] MEDS: SODIUM CHLORIDE 0.9% 1,000 ML IV SCH ×4 (03:45→23:45)
[2017-12-16] MEDS: VANCOMYCIN 1,000 MG in SODIUM CHLORIDE 0.9% 250 ML IVPB SCH ×3 (05:50→20:49)
[2017-12-16 08:39] LABS: Basophils % (A) 0 %; Eosinophils # (A) 0.1 k/uL (0-0.7); Eosinophils % (A) 1 %; HCT 30.7 % (34.0-46.0); HGB 10.2 gm/dL (11.4-16.0); Lymphocytes # (A) 1.5 k/uL (1.0-4.8); Lymphocytes % (A) 10 %; MCH 30.2 pg (25.0-35.0); MCHC 33.2 g/dL (31.0-37.0); Monocytes # (A) 0.9 k/uL (0-1.0); Monocytes % (A) 6 %; Neutrophils # (A) 12.7 k/uL (1.3-7.7); Neutrophils % (A) 82 %; Platelet Count 167 k/uL (150-450); RBC 3.37 m/uL (3.80-5.40); RDW 14.5 % (11.5-15.5); WBC 15.5 k/uL (4.0-11.0)
[2017-12-16 08:51] LABS: ALT 42 U/L (9-52); AST 34 U/L (14-36); Albumin 2.8 g/dL (3.5-5.0); Alkaline Phosphatase 111 U/L (38-126); Anion Gap 8 mmol/L; Blood Urea Nitrogen 10 mg/dL (7-17); Calcium 8.7 mg/dL (8.4-10.2); Carbon Dioxide 20 mmol/L (22-30); Chloride 110 mmol/L (98-107); Glucose 74 mg/dL (74-99); Potassium 3.9 mmol/L (3.5-5.1); Sodium 138 mmol/L (137-145); Total Bilirubin 0.2 mg/dL (0.2-1.3)
[2017-12-16] MEDS: NICOTINE 14MG/24HR PATCH TRANSDERM SCH (10:20)
[2017-12-16] MEDS: ENOXAPARIN 30 MG/0.3 ML SYRINGE SQ SCH (10:20)
[2017-12-16] MEDS: buPROPion SR 100 MG TABLET.ER PO SCH ×2 (10:20→20:49)
[2017-12-16 11:50] LABS: Erythrocyte Sedimentation Rate 42 mm/hr (0-20)
[2017-12-16] MEDS ORDERED: VANCOMYCIN TROUGH DUE 1 EACH MISC MISCELLANE ONE (13:00)
[2017-12-16] MEDS: MULTIVITAMINS, THERA 1 EACH TAB PO SCH (13:04)
--- NOTE | 2017-12-16 14:21 | P.PN ---
Subjective Progress Note Date: 12/16/17 Principal diagnosis: Patient feels okay still complains of right foot pain Denies any chest pain denies any shortness of breath Laboratory Results - last 24 hr 12/16/17 12/16/17 12/16/17 07:48 07:48 12:42 WBC 15.5 H RBC 3.37 L Hgb 10.2 L Hct 30.7 L MCV 91.0 MCH 30.2 MCHC 33.2 RDW 14.5 Plt Count 167 Neutrophils % 82 Lymphocytes % 10 Monocytes % 6 Eosinophils % 1 Basophils % 0 Neutrophils # 12.7 H Lymphocytes # 1.5 Monocytes # 0.9 Eosinophils # 0.1 Basophils # 0.0 ESR 42 H Sodium 138 Potassium 3.9 Chloride 110 H Carbon Dioxide 20 L Anion Gap 8 BUN 10 Creatinine 0.70 Est GFR (CKD-EPI)AfAm >90 Est GFR (CKD-EPI)NonAf >90 Glucose 74 Calcium 8.7 Total Bilirubin 0.2 AST 34 ALT 42 Alkaline Phosphatase 111 Total Protein 5.0 L Albumin 2.8 L Vancomycin Trough <5.0 Vital Signs 12/14/17 12/14/17 12/14/17 14:29 17:00 18:00 Temperature 98.5 F 98.8 F 98.9 F Pulse Rate 111 H 97 96 Pulse Rate [ Left] Pulse Rate [ Right Dorsalis Pedis] Respiratory 18 20 20 Rate Blood Pressure 103/66 109/51 110/56 Blood Pressure [Right Arm] O2 Sat by Pulse 99 98 99 Oximetry 12/14/17 12/14/17 12/15/17 19:40 22:45 07:34 Temperature 97.0 F L 98.4 F 96.6 F L Pulse Rate Pulse Rate [ 93 Left] Pulse Rate [ 90 60 Right Dorsalis Pedis] Respiratory 16 16 18 Rate Blood Pressure Blood Pressure 109/64 109/64 102/56 [Right Arm] O2 Sat by Pulse 98 98 97 Oximetry 12/15/17 12/15/17 12/16/17 15:00 23:05 05:55 Temperature 97.1 F L 97.6 F 97.8 F Pulse Rate Pulse Rate [ 90 93 96 Left] Pulse Rate [ Right Dorsalis Pedis] Respiratory 17 16 16 Rate Blood Pressure Blood Pressure 115/58 106/54 97/55 [Right Arm] O2 Sat by Pulse 97 98 93 L Oximetry Constitutional: No acute distress, conversant, pleasant Eyes: Anicteric sclerae, moist conjunctiva, ENMT: N cranial nerves grossly intact Neck: Supple, FROM, no masses, or JVD No carotid bruits No thyromegaly Lungs: Clear to auscultation Clear to percussion Normal respiratory effort, no accessory muscle use Cardiovascular: Heart regular in rate and rhythm, No murmurs, gallops, or rubs No peripheral edema Abdominal: Soft Nontender, no guarding, Skin: Normal temperature, tone, texture, turgor No induration No subcutaneous nodules No rash, lesions No ulcers Extremities: Swelling and tenderness in the right foot Psychiatric:Alert and oriented to person, place and time Appropriate affect Intact judgement Neuro: No obvious weakness Assessment and plan Right foot swelling and pain likely a recurrent osteomyelitis still awaiting transferred to [facility] has been accepted by a physician there Orthopedics recommended transfer to patient we still awaiting transfer Will continue the patient on vancomycin and and merrem Pain control Fibromyalgia DVT and GI prophylaxis Hemodynamically stable Objective - Vital Signs Vital signs: Vital Signs Temp 97.8 F 12/16/17 05:55 Pulse 96 12/16/17 05:55 Resp 16 12/16/17 05:55 BP 97/55 12/16/17 05:55 Pulse Ox 93 L 12/16/17 05:55 Intake & Output 12/15/17 12/16/17 12/16/17 18:59 06:59 18:59 Intake Total 1150 Output Total 50 Balance 1100 Intake: Intake, IV Titration 1150 Amount Sodium Chloride 0.9% 1, 900 000 ml @ 150 mls/hr IV . Q6H40M MARIANNE Rx#:[id number] Vancomycin 1,000 mg In 250 Sodium Chloride 0.9% 250 ml @ 125 mls/hr IVPB Q8H MARIANNE Rx#:[id number] Output: Emesis 50 Other: Voiding Method Toilet # Voids 2 2 - Labs CBC & Chem 7: 12/16/17 07:48 12/16/17 07:48 Labs: Abnormal Lab Results - Last 24 Hours (Table) 12/16/17 12/16/17 Range/Units 07:48 07:48 WBC 15.5 H (4.0-11.0) k/uL RBC 3.37 L (3.80-5.40) m/uL Hgb 10.2 L (11.4-16.0) gm/dL Hct 30.7 L (34.0-46.0) % Neutrophils # 12.7 H (1.3-7.7) k/uL ESR 42 H (0-20) mm/hr Chloride 110 H (98-107) mmol/L Carbon Dioxide 20 L (22-30) mmol/L Total Protein 5.0 L (6.3-8.2) g/dL Albumin 2.8 L (3.5-5.0) g/dL Microbiology - Last 24 Hours (Table) 12/14/17 15:45 Blood Culture Gram Stain - Preliminary Blood Blood Culture - Preliminary Presumptive Staph aureus 12/14/17 15:45 Blood Culture - Final Blood
[2017-12-16] MEDS: MORPHINE SULFATE 2 MG/ML SYRINGE IV PRN ×2 (14:36→22:33)
[2017-12-16] MEDS: PREGABALIN 100 MG CAP PO SCH (20:49)
[2017-12-17] MEDS: MEROPENEM 500 MG in SODIUM CHLORIDE 0.9% 50 ML IVPB SCH ×3 (03:08→20:00)
[2017-12-17] MEDS: SODIUM CHLORIDE 0.9% 1,000 ML IV SCH ×3 (05:08→18:33)
[2017-12-17] MEDS: VANCOMYCIN 1,000 MG in SODIUM CHLORIDE 0.9% 250 ML IVPB SCH ×2 (05:09→14:12)
[2017-12-17 07:39] VITALS: RESP 16
[2017-12-17] MEDS: NICOTINE 14MG/24HR PATCH TRANSDERM SCH (07:55)
[2017-12-17] MEDS: buPROPion SR 100 MG TABLET.ER PO SCH ×2 (07:55→21:20)
[2017-12-17] MEDS: ENOXAPARIN 30 MG/0.3 ML SYRINGE SQ SCH (07:55)
[2017-12-17] MEDS: PREGABALIN 100 MG CAP PO SCH ×2 (07:55→21:20)
[2017-12-17] MEDS: HYDROcodone/APAP 5-325MG 1 EACH TAB PO PRN ×2 (07:57→19:56)
[2017-12-17 09:20] LABS: Basophils % (A) 0 %; Eosinophils # (A) 0.1 k/uL (0-0.7); Eosinophils % (A) 1 %; HCT 31.4 % (34.0-46.0); HGB 10.3 gm/dL (11.4-16.0); Lymphocytes # (A) 2.3 k/uL (1.0-4.8); Lymphocytes % (A) 16 %; MCH 29.7 pg (25.0-35.0); MCHC 32.9 g/dL (31.0-37.0); Mean Platelet Volume 9.8; Monocytes % (A) 7 %; Neutrophils # (A) 10.6 k/uL (1.3-7.7); Neutrophils % (A) 74 %; Platelet Count 198 k/uL (150-450); RBC 3.49 m/uL (3.80-5.40); RDW 14.1 % (11.5-15.5); WBC 14.3 k/uL (4.0-11.0)
[2017-12-17 09:38] LABS: ALT 46 U/L (9-52); AST 35 U/L (14-36); Albumin 3.2 g/dL (3.5-5.0); Alkaline Phosphatase 146 U/L (38-126); Anion Gap 13 mmol/L; Blood Urea Nitrogen 6 mg/dL (7-17); Calcium 8.9 mg/dL (8.4-10.2); Carbon Dioxide 21 mmol/L (22-30); Chloride 108 mmol/L (98-107); Glucose 84 mg/dL (74-99); Potassium 3.7 mmol/L (3.5-5.1); Sodium 142 mmol/L (137-145); Total Bilirubin 0.4 mg/dL (0.2-1.3); Total Protein 5.4 g/dL (6.3-8.2)
--- NOTE | 2017-12-17 11:01 | P.PN ---
Subjective Progress Note Date: 12/17/17 Principal diagnosis: Patient still have pain in the right foot, no worsening but not better Denies any chest pain no shortness of breath no vomiting Constitutional: No acute distress, conversant, pleasant Eyes: Anicteric sclerae, moist conjunctiva, ENMT: N cranial nerves grossly intact Neck: Supple, FROM, no masses, or JVD No carotid bruits No thyromegaly Lungs: Clear to auscultation Clear to percussion Normal respiratory effort, no accessory muscle use Cardiovascular: Heart regular in rate and rhythm, No murmurs, gallops, or rubs No peripheral edema Abdominal: Soft Nontender, no guarding, Skin: Normal temperature, tone, texture, turgor No induration No subcutaneous nodules No rash, lesions No ulcers Extremities: Swelling and tenderness in the right foot Psychiatric:Alert and oriented to person, place and time Appropriate affect Intact judgement Neuro: No obvious weakness Assessment and plan Right foot swelling and pain likely a recurrent osteomyelitis Still awaiting the patient to be transferred Patient get accepted by physician for transfer Orthopedics recommended transfer for continued deal of care since the patient did have multiple surgeries in that hospital Will continue the patient on vancomycin and and merrem Pain control Fibromyalgia DVT and GI prophylaxis Hemodynamically stable Vital Signs 12/14/17 12/14/17 12/14/17 14:29 17:00 18:00 Temperature 98.5 F 98.8 F 98.9 F Pulse Rate 111 H 97 96 Pulse Rate [ Left] Pulse Rate [ Right Dorsalis Pedis] Pulse Rate [ Supine Pulse Oximetery] Respiratory 18 20 20 Rate Blood Pressure 103/66 109/51 110/56 Blood Pressure [Left Arm Supine] Blood Pressure [Right Arm] O2 Sat by Pulse 99 98 99 Oximetry 12/14/17 12/14/17 12/15/17 19:40 22:45 07:34 Temperature 97.0 F L 98.4 F 96.6 F L Pulse Rate Pulse Rate [ 93 Left] Pulse Rate [ 90 60 Right Dorsalis Pedis] Pulse Rate [ Supine Pulse Oximetery] Respiratory 16 16 18 Rate Blood Pressure Blood Pressure [Left Arm Supine] Blood Pressure 109/64 109/64 102/56 [Right Arm] O2 Sat by Pulse 98 98 97 Oximetry 12/15/17 12/15/17 12/16/17 15:00 23:05 05:55 Temperature 97.1 F L 97.6 F 97.8 F Pulse Rate Pulse Rate [ 90 93 96 Left] Pulse Rate [ Right Dorsalis Pedis] Pulse Rate [ Supine Pulse Oximetery] Respiratory 17 16 16 Rate Blood Pressure Blood Pressure [Left Arm Supine] Blood Pressure 115/58 106/54 97/55 [Right Arm] O2 Sat by Pulse 97 98 93 L Oximetry 12/16/17 12/16/17 12/17/17 14:42 23:00 07:00 Temperature 98.0 F 99.2 F 97.9 F Pulse Rate Pulse Rate [ 91 Left] Pulse Rate [ Right Dorsalis Pedis] Pulse Rate [ 106 H 81 Supine Pulse Oximetery] Respiratory 16 20 16 Rate Blood Pressure Blood Pressure 110/74 [Left Arm Supine] Blood Pressure 116/77 104/63 [Right Arm] O2 Sat by Pulse 99 100 93 L Oximetry Laboratory Results - last 24 hr 12/16/17 12/16/17 12/17/17 07:48 12:42 08:17 WBC 14.3 H RBC 3.49 L Hgb 10.3 L Hct 31.4 L MCV 90.0 MCH 29.7 MCHC 32.9 RDW 14.1 Plt Count 198 Neutrophils % 74 Lymphocytes % 16 Monocytes % 7 Eosinophils % 1 Basophils % 0 Neutrophils # 10.6 H Lymphocytes # 2.3 Monocytes # 1.0 Eosinophils # 0.1 Basophils # 0.0 ESR 42 H Sodium Potassium Chloride Carbon Dioxide Anion Gap BUN Creatinine Est GFR (CKD-EPI)AfAm Est GFR (CKD-EPI)NonAf Glucose Calcium Total Bilirubin AST ALT Alkaline Phosphatase Total Protein Albumin Vancomycin Trough <5.0 12/17/17 08:17 WBC RBC Hgb Hct MCV MCH MCHC RDW Plt Count Neutrophils % Lymphocytes % Monocytes % Eosinophils % Basophils % Neutrophils # Lymphocytes # Monocytes # Eosinophils # Basophils # ESR Sodium 142 Potassium 3.7 Chloride 108 H Carbon Dioxide 21 L Anion Gap 13 BUN 6 L Creatinine 0.67 Est GFR (CKD-EPI)AfAm >90 Est GFR (CKD-EPI)NonAf >90 Glucose 84 Calcium 8.9 Total Bilirubin 0.4 AST 35 ALT 46 Alkaline Phosphatase 146 H Total Protein 5.4 L Albumin 3.2 L Vancomycin Trough Objective - Vital Signs Vital signs: Vital Signs Temp 97.9 F 12/17/17 07:00 Pulse 81 12/17/17 07:00 Resp 16 12/17/17 07:00 BP 104/63 12/17/17 07:00 Pulse Ox 93 L 12/17/17 07:00 Intake & Output 12/16/17 12/17/17 12/17/17 18:59 06:59 18:59 Intake Total 200 950 Balance 200 950 Intake: Oral 200 950 Other: Voiding Method Toilet # Voids 2 1 # Bowel Movements 0 - Labs CBC & Chem 7: 12/17/17 08:17 12/17/17 08:17 Labs: Abnormal Lab Results - Last 24 Hours (Table) 12/16/17 12/17/17 12/17/17 Range/Units 07:48 08:17 08:17 WBC 14.3 H (4.0-11.0) k/uL RBC 3.49 L (3.80-5.40) m/uL Hgb 10.3 L (11.4-16.0) gm/dL Hct 31.4 L (34.0-46.0) % Neutrophils # 10.6 H (1.3-7.7) k/uL ESR 42 H (0-20) mm/hr Chloride 108 H (98-107) mmol/L Carbon Dioxide 21 L (22-30) mmol/L BUN 6 L (7-17) mg/dL Alkaline Phosphatase 146 H (38-126) U/L Total Protein 5.4 L (6.3-8.2) g/dL Albumin 3.2 L (3.5-5.0) g/dL Microbiology - Last 24 Hours (Table) 12/14/17 15:45 Blood Culture Gram Stain - Final Blood Blood Culture - Final Staphylococcus aureus
--- NOTE | 2017-12-17 11:14 | P.DS ---
Providers Date of admission: 12/14/17 17:01 This is a 22-year-old female admitted to the hospital with recurrent osteomyelitis of the right foot patient has been admitted to [facility] and did have multiple surgeries in the right foot before and also has been on IV antibiotics at least of September after which it was been stopped after all the tests did not show any recurrent osteomyelitis the patient came back with increased swelling in the last few days worse and was found to have acute on chronic osteomyelitis and admitted to the hospital Discussed the case with Ortho did recommend that the patient needs to be transferred to [facility] for continue with the of care as the patient did have the multiple surgeries there before Talk to the hospitalist cotton sampler accepted the patient and we're awaiting finalizing the transfer During the hospital stay the patient was stable as been evaluated by infectious disease and orthopedics and has been started on vancomycin and Merrem Review of systems and systems has been reviewed all negative and positive findings as per HPI Constitutional: No acute distress, conversant, pleasant Eyes: Anicteric sclerae, moist conjunctiva, no lid-lag PERRLA ENMT: cn grossly intact Neck: Supple, FROM, no masses, or JVD No carotid bruits No thyromegaly Lungs: Clear to auscultation Clear to percussion Normal respiratory effort, no accessory muscle use Cardiovascular: Heart regular in rate and rhythm, No murmurs, gallops, or rubs No peripheral edema Abdominal: Soft Nontender, no guarding, Skin: Normal temperature, tone, texture, turgor No induration No subcutaneous nodules No rash, lesions No ulcers Extremities: Right foot swelling Psychiatric:Alert and oriented to person, place and time Appropriate affect Intact judgement Neuro: No focal weakness Laboratory Results - last 24 hr 12/16/17 12/16/17 12/17/17 07:48 12:42 08:17 WBC 14.3 H RBC 3.49 L Hgb 10.3 L Hct 31.4 L MCV 90.0 MCH 29.7 MCHC 32.9 RDW 14.1 Plt Count 198 Neutrophils % 74 Lymphocytes % 16 Monocytes % 7 Eosinophils % 1 Basophils % 0 Neutrophils # 10.6 H Lymphocytes # 2.3 Monocytes # 1.0 Eosinophils # 0.1 Basophils # 0.0 ESR 42 H Sodium Potassium Chloride Carbon Dioxide Anion Gap BUN Creatinine Est GFR (CKD-EPI)AfAm Est GFR (CKD-EPI)NonAf Glucose Calcium Total Bilirubin AST ALT Alkaline Phosphatase Total Protein Albumin Vancomycin Trough <5.0 12/17/17 08:17 WBC RBC Hgb Hct MCV MCH MCHC RDW Plt Count Neutrophils % Lymphocytes % Monocytes % Eosinophils % Basophils % Neutrophils # Lymphocytes # Monocytes # Eosinophils # Basophils # ESR Sodium 142 Potassium 3.7 Chloride 108 H Carbon Dioxide 21 L Anion Gap 13 BUN 6 L Creatinine 0.67 Est GFR (CKD-EPI)AfAm >90 Est GFR (CKD-EPI)NonAf >90 Glucose 84 Calcium 8.9 Total Bilirubin 0.4 AST 35 ALT 46 Alkaline Phosphatase 146 H Total Protein 5.4 L Albumin 3.2 L Vancomycin Trough Vital Signs 12/14/17 12/14/17 12/14/17 14:29 17:00 18:00 Temperature 98.5 F 98.8 F 98.9 F Pulse Rate 111 H 97 96 Pulse Rate [ Left] Pulse Rate [ Right Dorsalis Pedis] Pulse Rate [ Supine Pulse Oximetery] Respiratory 18 20 20 Rate Blood Pressure 103/66 109/51 110/56 Blood Pressure [Left Arm Supine] Blood Pressure [Right Arm] O2 Sat by Pulse 99 98 99 Oximetry 12/14/17 12/14/17 12/15/17 19:40 22:45 07:34 Temperature 97.0 F L 98.4 F 96.6 F L Pulse Rate Pulse Rate [ 93 Left] Pulse Rate [ 90 60 Right Dorsalis Pedis] Pulse Rate [ Supine Pulse Oximetery] Respiratory 16 16 18 Rate Blood Pressure Blood Pressure [Left Arm Supine] Blood Pressure 109/64 109/64 102/56 [Right Arm] O2 Sat by Pulse 98 98 97 Oximetry 12/15/17 12/15/17 12/16/17 15:00 23:05 05:55 Temperature 97.1 F L 97.6 F 97.8 F Pulse Rate Pulse Rate [ 90 93 96 Left] Pulse Rate [ Right Dorsalis Pedis] Pulse Rate [ Supine Pulse Oximetery] Respiratory 17 16 16 Rate Blood Pressure Blood Pressure [Left Arm Supine] Blood Pressure 115/58 106/54 97/55 [Right Arm] O2 Sat by Pulse 97 98 93 L Oximetry 12/16/17 12/16/17 12/17/17 14:42 23:00 07:00 Temperature 98.0 F 99.2 F 97.9 F Pulse Rate Pulse Rate [ 91 Left] Pulse Rate [ Right Dorsalis Pedis] Pulse Rate [ 106 H 81 Supine Pulse Oximetery] Respiratory 16 20 16 Rate Blood Pressure Blood Pressure 110/74 [Left Arm Supine] Blood Pressure 116/77 104/63 [Right Arm] O2 Sat by Pulse 99 100 93 L Oximetry Discharge plan acute on chronic osteomyelitis of the right foot Patient has been given vancomycin and Merrem and evaluated by ID and infectious disease Pain control Patient has been hemodynamically stable in the hospital stay Discharge medications see list continue vent and Merrem and to be adjusted by the accepting facility Fibromyalgia All questions and concerns of the patient has been addressed Attending physician: Alton Rico MD Consults: 12/14/17 17:02 Consult Physician Urgent Consulting Provider: Gigi Shetty Consult Reason/Comments: Evaluate for osteomyelitis Do you want consulting provider notified?: Yes 12/15/17 08:58 Consult Physician Urgent Consulting Provider: Jesus Garcia Consult Reason/Comments: osteomylitis righ foot Do you want consulting provider notified?: Yes Primary care physician: Shelley Vanessa Patient Condition at Discharge: Good Plan - Discharge Summary Discharge Rx Participant: No New Discharge Prescriptions: New Acetaminophen Tab [Tylenol] 650 mg PO Q6HR PRN tab PRN Reason: Mild Pain Or Fever > 100.5 cefTRIAXone [Rocephin] 2,000 mg IVP Q24H syringe Enoxaparin [Lovenox] 30 mg SQ DAILY syringe HYDROcodone/APAP 5-325MG [[place] 5-325] 1 each PO Q4HR PRN tab PRN Reason: Moderate Pain Ibuprofen [Motrin] 400 mg PO Q6HR PRN tab PRN Reason: Mild Pain Or Fever > 100.5 Nicotine 14Mg/24Hr Patch [Habitrol] 1 patch TRANSDERM DAILY patch Ondansetron [Zofran] 4 mg IVP Q8HR PRN vial PRN Reason: Nausea And Vomiting traMADol HCl [Ultram] 50 mg PO Q6H PRN tab PRN Reason: Moderate Pain Vancomycin 1,000 mg IVPB Q12H vial Continue traMADol HCL [Tramadol HCl] 50 mg PO TID-W/MEALS PRN PRN Reason: Pain Pregabalin [Lyrica] 300 mg PO BID Ibuprofen [Motrin] 800 mg PO TID PRN PRN Reason: Pain Cholecalciferol (Vitamin D3) [Vitamin D3] 2,000 unit PO DAILY Biotin 5 mg PO DAILY Ascorbic Acid [Vitamin C] 1,000 mg PO DAILY Cyclobenzaprine [Flexeril] 10 mg PO TID PRN PRN Reason: Muscle Spasm Pyridoxine HCl (Vitamin B6) [Vitamin B-6] 100 mg PO DAILY Discharge Medication List Pregabalin [Lyrica] 300 mg PO BID 02/17/16 [History] traMADol HCL [Tramadol HCl] 50 mg PO TID-W/MEALS PRN 02/17/16 [History] Acetaminophen Tab [Tylenol] 650 mg PO Q6HR PRN tab 12/14/17 [Rx] Ascorbic Acid [Vitamin C] 1,000 mg PO DAILY 12/14/17 [History] Biotin 5 mg PO DAILY 12/14/17 [History] Cholecalciferol (Vitamin D3) [Vitamin D3] 2,000 unit PO DAILY 12/14/17 [History] Cyclobenzaprine [Flexeril] 10 mg PO TID PRN 12/14/17 [History] Enoxaparin [Lovenox] 30 mg SQ DAILY syringe 12/14/17 [Rx] HYDROcodone/APAP 5-325MG [[place] 5-325] 1 each PO Q4HR PRN tab 12/14/17 [Rx] Ibuprofen [Motrin] 400 mg PO Q6HR PRN tab 12/14/17 [Rx] Ibuprofen [Motrin] 800 mg PO TID PRN 12/14/17 [History] Nicotine 14Mg/24Hr Patch [Habitrol] 1 patch TRANSDERM DAILY patch 12/14/17 [Rx] Ondansetron [Zofran] 4 mg IVP Q8HR PRN vial 12/14/17 [Rx] Pyridoxine HCl (Vitamin B6) [Vitamin B-6] 100 mg PO DAILY 12/14/17 [History] Vancomycin 1,000 mg IVPB Q12H vial 12/14/17 [Rx] cefTRIAXone [Rocephin] 2,000 mg IVP Q24H syringe 12/14/17 [Rx] traMADol HCl [Ultram] 50 mg PO Q6H PRN tab 12/14/17 [Rx] Follow up Appointment(s)/Referral(s): Shelley Vanessa MD [Primary Care Provider] - 1-2 days Discharge Disposition: OTHER INSTITUTION NOT DEFINED
[2017-12-17] MEDS: IBUPROFEN 400 MG TAB PO PRN (12:26)
[2017-12-17] MEDS: MULTIVITAMINS, THERA 1 EACH TAB PO SCH (12:26)
[2017-12-17 13:13] LABS: T4/T8 Ratio (CD4:CD8) 1.4 (1.0-3.7)
[2017-12-17] MEDS ORDERED: DOCUSATE 100 MG CAP PO PRN (14:17)
[2017-12-17] MEDS: MORPHINE SULFATE 2 MG/ML SYRINGE IV PRN (16:38)
--- NOTE | 2017-12-17 20:45 | P.PN ---
Subjective Progress Note Date: 12/17/17 22-year-old woman who has a known history of a complicated progressive process to her right foot. The patient relates that she was having chronic foot pain and was seen by podiatry. 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 It actually was present for quite a bit of time. Eventually she was seen by podiatry. She had significant difficulty with some foot deformity and consequently a bunionectomy was performed and screws were placed into the first metatarsal area. She apparently had some debridements to the chronic plantar ulceration. She also had a tendon lengthening procedure try to improve the balance of the foot and reduce the ulceration. It appears that all these surgeries eventually failed and she ended up with a fifth toe ray amputation of the right foot. She relates until a short period of time ago she had been on a course of intravenous antibiotic therapy. She was treated until the foot improved and she relates her blood work looked good. After the antibiotics were complete her IV access was removed and she was to follow with podiatry. However she's now developed the symptoms of swelling erythema pain to the right foot associated with some fever and chills. She relates that she's had great difficulties with infections over her life. She apparently has had difficulties with gastrointestinal infections and sepsis, and several skin and soft tissue infections over the years. She however denies having meningitis or multiple bouts of pneumonia. She is short in stature, but does have a heritage. Denies other family members having similar troubles as she does. 12/17/2017 patient continues to feel poorly. The pain is increased foot swelling is increased however she has elevated a bit today which has been helping somewhat. She continues to feel very poorly overall. The team is working diligently to transfer her to her surgeon but apparently there is a significant insurance difficulty and likely will not be able to be transferred to their facility. Objective - Vital Signs Vital signs: Vital Signs Temp 98.9 F 12/17/17 14:54 Pulse 90 12/17/17 14:54 Resp 16 12/17/17 14:54 BP 122/69 12/17/17 14:54 Pulse Ox 97 12/17/17 14:54 Intake & Output 12/17/17 12/17/17 12/18/17 06:59 18:59 06:59 Intake Total 950 Balance 950 Intake: Oral 950 Other: Voiding Method Toilet # Voids 1 2 - Exam 22-year-old female presents to Hospital feeling poorly with severe pain and swelling to her right foot. HEENT: Anicteric conjunctiva are pink and moist nasal mucosa grossly intact without significant lesions, there is no thrush. Dentition is not excellent for age Neck: The neck is supple without significant lymphadenopathy or thyromegaly. Lungs: There is symmetrical air entry, there is evidence of her expiratory wheeze but no jennifer bronchial sounds, no dullness or egophony. Heart: Regular rate and rhythm with an audible S1-S2, no S3 no S4. There is no significant murmur click or rub, PMI was nondisplaced. Abdomen: Positive bowel sounds soft and nontender without palpable masses or organomegaly. There was no guarding or rebound. Extremities: The upper extremities show the IV site without difficulties and no lesions of the upper extremities are noted. The left leg and foot are intact. The right lower extremities shows evidence of the amputation site to the fifth toe which is well-healed. Over the first metatarsal head and great toe is significant swelling and warmth and mild erythema. This area is distinctly tender on manipulation. The site is mildly indurated but has become fluctuant and is more tender. There is excellent capillary refill Neuro: Awake alert oriented to person place and time. There are no acute new gross focal sensory motor deficits. - Labs CBC & Chem 7: 12/17/17 08:17 18 08:17 Labs: Abnormal Lab Results - Last 24 Hours (Table) 12/16/1718 18 Range/Units 07:48 08:17 08:17 WBC 14.3 H (4.0-11.0) k/uL RBC 3.49 L (3.80-5.40) m/uL Hgb 10.3 L (11.4-16.0) gm/dL Hct 31.4 L (34.0-46.0) % Neutrophils # 10.6 H (1.3-7.7) k/uL Chloride 108 H (98-107) mmol/L Carbon Dioxide 21 L (22-30) mmol/L BUN 6 L (7-17) mg/dL Alkaline Phosphatase 146 H (38-126) U/L Total Protein 5.4 L (6.3-8.2) g/dL Albumin 3.2 L (3.5-5.0) g/dL Prealbumin 9.0 L (18.0-42.0) mg/dL IgG 578.0 L (700.0-1600.0) mg/dL Microbiology - Last 24 Hours (Table) 12/14/17 15:45 Blood Culture Gram Stain - Final Blood Blood Culture - Final Staphylococcus aureus Laboratory Results WBC 14.3 k/uL (4.0-11.0) H 12/17/17 08:17 RBC 3.49 m/uL (3.80-5.40) L 12/17/17 08:17 Hgb 10.3 gm/dL (11.4-16.0) L 12/17/17 08:17 Hct 31.4 % (34.0-46.0) L 12/17/17 08:17 MCV 90.0 fL (80.0-100.0) 12/17/17 08:17 MCH 29.7 pg (25.0-35.0) 12/17/17 08:17 MCHC 32.9 g/dL (31.0-37.0) 12/17/17 08:17 RDW 14.1 % (11.5-15.5) 12/17/17 08:17 Plt Count 198 k/uL (150-450) 12/17/17 08:17 Neutrophils % 74 % 12/17/17 08:17 Lymphocytes % 16 % 12/17/17 08:17 Monocytes % 7 % 12/17/17 08:17 Eosinophils % 1 % 12/17/17 08:17 Basophils % 0 % 12/17/17 08:17 Neutrophils # 10.6 k/uL (1.3-7.7) H 12/17/17 08:17 Lymphocytes # 2.3 k/uL (1.0-4.8) 12/17/17 08:17 Monocytes # 1.0 k/uL (0-1.0) 12/17/17 08:17 Eosinophils # 0.1 k/uL (0-0.7) 12/17/17 08:17 Basophils # 0.0 k/uL (0-0.2) 12/17/17 08:17 ESR 42 mm/hr (0-20) H 12/16/17 07:48 Sodium 142 mmol/L (137-145) 12/17/17 08:17 Potassium 3.7 mmol/L (3.5-5.1) 12/17/17 08:17 Chloride 108 mmol/L (98-107) H 12/17/17 08:17 Carbon Dioxide 21 mmol/L (22-30) L 12/17/17 08:17 Anion Gap 13 mmol/L 12/17/17 08:17 BUN 6 mg/dL (7-17) L 12/17/17 08:17 Creatinine 0.67 mg/dL (0.52-1.04) 12/17/17 08:17 Est GFR (CKD-EPI)AfAm >90 (>60 ml/min/1.73 sqM) 12/17/17 08:17 Est GFR (CKD-EPI)NonAf >90 (>60 ml/min/1.73 sqM) 12/17/17 08:17 Glucose 84 mg/dL (74-99) 12/17/17 08:17 Plasma Lactic Acid Bijan 0.7 mmol/L (0.7-2.0) 12/14/17 17:05 Calcium 8.9 mg/dL (8.4-10.2) 12/17/17 08:17 Total Bilirubin 0.4 mg/dL (0.2-1.3) 12/17/17 08:17 AST 35 U/L (14-36) 12/17/17 08:17 ALT 46 U/L (9-52) 12/17/17 08:17 Alkaline Phosphatase 146 U/L (38-126) H 12/17/17 08:17 C-Reactive Protein 84.3 mg/L (<10.0) H 12/14/17 15:45 Total Protein 5.4 g/dL (6.3-8.2) L 12/17/17 08:17 Albumin 3.2 g/dL (3.5-5.0) L 12/17/17 08:17 Prealbumin 9.0 mg/dL (18.0-42.0) L 12/16/17 07:48 Vancomycin Trough <5.0 ug/mL 12/16/17 12:42 IgG 578.0 mg/dL (700.0-1600.0) L 12/16/17 07:48 IgA 110.0 mg/dL (60.0-350.0) 12/16/17 07:48 IgM 101.0 mg/dL (40.0-280.0) 12/16/17 07:48 IgE 41.00 IU/mL (0.00-114.00) 12/16/17 07:48 T-Suppressor Cells 454 cell/ul (190-832) 12/16/17 07:48 % CD4 [place] 45 % (35-66) 12/16/17 07:48 Absolute CD4 [place] 645 cell/ul (443-1471) 12/16/17 07:48 CD4/CD8 Ratio 1.4 (1.0-3.7) 12/16/17 07:48 % CD8 Suppressor 32 % (9-37) 12/16/17 07:48 Microbiology 12/14/17 15:45 Blood Blood Culture Gram Stain - Final 12/14/17 15:45 Blood Blood Culture - Final Staphylococcus aureus Assessment and Plan (1) Osteomyelitis Narrative/Plan: 22-year-old female who has an extensive past medical history regarding the infections that she has been suffering from from her right foot. She has great difficulties with some deformity to the foot has undergone multiple surgical procedures. She had a significant ulceration that resulted in the rehabilitation to the fifth toe and metatarsal. If it seems to be well- healed but is now having significant swelling pain and erythema to the first metatarsal area where she has had hardware placed for fixation. Imaging studies as noted reveal evidence of lucency around the hardware strongly consistent with underlying infection. Cultures are pending at this point in time, and apparently there is some data that is yet to be fully obtained there revealed that meropenem and vancomycin are adequate choices until we have further data. He has never there is a positive blood culture which will certainly help delineate the course of outpatient intravenous antibiotic therapy. There is notation that she is to be transferred to an outside hospital to receive further intervention. Potentially however we'll need to set up her outpatient antibiotic therapy and then outpatient follow-up with the surgeon at that time. We will need to have negative blood cultures so that IV access can be placed. Does appear that a gram-positive has been found that her blood that we'll likely correlate very well with significant infection of her foot. Orthopedics has evaluated, await their input as to potential specialty boot she should be wearing at the time of discharge, and if she should be utilizing a Roll-A-Bout. We'll try to enhance her nutrition her protein intake. We discussed at great length smoking and the importance of smoking cessation in her situation to allow bony healing. Wellbutrin is added to her regimen to which hopefully will assist her along with the nicotine patch to become a successful nonsmoker 12/17/2017 reveals patient with some worsening to the process to her right foot. There was difficulty with IV access for some time but is now back on her antibiotic therapy for her MSSA infection with bacteremia and abscess to her right foot. As noted we are having no ability to transfer to her other hospital. Last radiology to perform a guided abscess drainage to that right foot until she can have a more definitive surgical procedure in the future. Antibiotic therapy has been with meropenem and vancomycin pending culture results. With MSSA being isolated idealistically would place her on intravenous Ancef, her cephalexin ALLERGY that is difficult and will utilize daptomycin instead at this time. Follow blood cultures are requested, which we have negative blood cultures PICC line can be placed and we can have outpatient follow-up arranged. Her proteins are low we'll ask for a clear liquid protein supplement Her IgG level was low and will need outpatient follow-up to ensure she does not have an immunodeficiency. Current Visit: Yes Status: Acute Code(s): M86.9 - OSTEOMYELITIS, UNSPECIFIED SNOMED Code(s): 97767771 (2) Leukocytosis Current Visit: No Status: Acute Code(s): D72.829 - ELEVATED WHITE BLOOD CELL COUNT, UNSPECIFIED SNOMED Code(s): 772774562 (3) Fibromyalgia Current Visit: No Status: Acute Code(s): M79.7 - FIBROMYALGIA SNOMED Code( s): 700614416
[2017-12-17] MEDS ORDERED: DAPTOmycin 500 MG in SODIUM CHLORIDE 0.9% 50 ML IV SCH (21:00)
[2017-12-18 04:27] LABS: Basophils % (A) 0 %; Eosinophils # (A) 0.2 k/uL (0-0.7); Eosinophils % (A) 2 %; HCT 31.4 % (34.0-46.0); HGB 10.1 gm/dL (11.4-16.0); Lymphocytes # (A) 1.9 k/uL (1.0-4.8); Lymphocytes % (A) 19 %; MCH 28.8 pg (25.0-35.0); MCHC 32.2 g/dL (31.0-37.0); MCV 89.5 fL (80.0-100.0); Monocytes # (A) 0.6 k/uL (0-1.0); Monocytes % (A) 6 %; Neutrophils # (A) 7.1 k/uL (1.3-7.7); Neutrophils % (A) 70 %; Platelet Count 219 k/uL (150-450); RBC 3.51 m/uL (3.80-5.40); RDW 14.3 % (11.5-15.5); WBC 10.1 k/uL (4.0-11.0)
[2017-12-18 04:36] LABS: ALT 125 U/L (9-52); AST 112 U/L (14-36); Alkaline Phosphatase 174 U/L (38-126); Anion Gap 9 mmol/L; Blood Urea Nitrogen 4 mg/dL (7-17); Calcium 8.7 mg/dL (8.4-10.2); Carbon Dioxide 24 mmol/L (22-30); Chloride 108 mmol/L (98-107); Glucose 87 mg/dL (74-99); Potassium 3.4 mmol/L (3.5-5.1); Sodium 141 mmol/L (137-145); Total Bilirubin 0.4 mg/dL (0.2-1.3); Total Protein 5.2 g/dL (6.3-8.2)
[2017-12-18] MEDS ORDERED: VANCOMYCIN TROUGH DUE 1 EACH MISC MISCELLANE ONE (05:00)
[2017-12-18] MEDS: SODIUM CHLORIDE 0.9% 1,000 ML IV SCH ×2 (05:28→08:13)
[2017-12-18 06:22] VITALS: BP 133/87; PULSE 88; TEMP 98
[2017-12-18] MEDS: ENOXAPARIN 30 MG/0.3 ML SYRINGE SQ SCH (07:16)
[2017-12-18] MEDS: NICOTINE 14MG/24HR PATCH TRANSDERM SCH (08:12)
[2017-12-18] MEDS: buPROPion SR 100 MG TABLET.ER PO SCH (08:12)
[2017-12-18] MEDS: PREGABALIN 100 MG CAP PO SCH (08:12)
[2017-12-18] MEDS: MULTIVITAMINS, THERA 1 EACH TAB PO SCH (08:13)
[2017-12-18] MEDS ORDERED: POTASSIUM CHLORIDE ER 20 MEQ TAB.ER PO STA (08:21)
[2017-12-18] MEDS ORDERED: SODIUM CHLORIDE 0.45% 1,000 ML IV SCH (08:30)
[2017-12-18 11:50] VITALS: BMI 24.7
[2017-12-18] MEDS ORDERED: LACTULOSE 20 GM/30 ML CUP PO PRN (12:05)
--- NOTE | 2017-12-18 12:21 | P.DS ---
Providers Date of admission: 12/14/17 17:01 Expected date of discharge: 12/18/17 Attending physician: Alton Rico MD Consults: 12/14/17 17:02 Consult Physician Urgent Consulting Provider: Gigi Shetty Consult Reason/Comments: Evaluate for osteomyelitis Do you want consulting provider notified?: Yes 12/15/17 08:58 Consult Physician Urgent Consulting Provider: Jesus Garcia Consult Reason/Comments: osteomylitis righ foot Do you want consulting provider notified?: Yes Primary care physician: Shelley Vanessa - Discharge Diagnosis(es) (1) Acute osteomyelitis Current Visit: Yes Status: Acute (2) Staphylococcus aureus bacteremia Current Visit: Yes Status: Acute (3) Anemia Current Visit: Yes Status: Acute (4) Transaminitis Current Visit: Yes Status: Acute (5) Hypokalemia Current Visit: Yes Status: Acute (6) Fibromyalgia Current Visit: No Status: Acute Hospital Course: Patient is a 22-year-old female with a past medical history of right foot osteomyelitis, hyperemesis gravidarum, fibromyalgia, and recurrent pneumonia who initially presented to the hospital with complaints of right foot swelling and pain. In the ER she underwent an extensive evaluation. She was found to be tachycardic on arrival with a pulse of 111. Initial laboratory analysis showed an elevated white blood cell count of 14, low sodium at 135, and C-reactive protein of 84.3. Her x-ray and CT of the right foot was consistent with acute on chronic osteomyelitis. She was started on IV antibiotics and admitted to the general medical floor. She was seen by Dr. Shetty of orthopedic surgery who recommended transfer to tertiary care facility or back to her prior surgeon. She was seen by infectious disease and placed on vancomycin and meropenem. They also started evaluation for possible immunodeficiency. CD4/CD8 count was ordered. IgG was slightly low at 578. She came back with metastases the sun sensitive staph aureus bacteremia and due to her Keflex ALLERGY she was transitioned to daptomycin. We have arranged for transfer back to [facility] for further management of her acute osteomyelitis. Of note she had been treated for osteomyelitis and has had multiple surgeries in the right foot and also needed antibiotics. Per records her IV antibiotics were stopped in September when the test did not show any recurrent osteomyelitis. Patient seen and examined at bedside. Increased pain and swelling in her right foot. Pain is worse with ambulating. No chest pain or shortness of breath. No nausea. No bowel movement in 5 days. Patient states she takes lactulose at home and this is then restarted today. She has only been tolerating clear liquids at this point in time. Vital signs reviewed and stable. General: non toxic, no distress, appears at stated age Derm: Mild erythema of the right foot with swelling and fluctuance, multiple tattoos Head: atraumatic, normocephalic, symmetric Eyes: EOMI, no lid lag, anicteric sclera Mouth: no lip lesion, mucus membranes moist Cardiovascular: S1S2 reg, no murmur, positive posterior tibial pulse bilateral, Lungs: CTA bilateral, no rhonchi, no rales , no accessory muscle use Abdominal: soft, nontender to palpation, no guarding, no appreciable organomegaly Ext: no gross muscle atrophy, no edema, no contractures Neuro: CN II-XI grossly intact, no focal neuro deficits Psych: Alert, oriented, appropriate affect A total of 33 minutes of time were spent preparing this complex discharge summary . Pertinent Studies: Ankle and right foot x-ray: Postsurgical changes of the first metatarsophalangeal joint with surrounding osteophytic changes and hypertrophic ossification concerning for persistent osteomyelitis. Tib-fib x-ray: No acute process CT right foot: Fusion surgery, lucency around the hardware consistent with movement and nonunion, soft tissue swelling consistent with cellulitis, chronic osteomyelitis around the hardware screws at the first tarsometatarsal joint is certainly possible. Procedures: None Patient Condition at Discharge: Good Plan - Discharge Summary Discharge Rx Participant: Yes New Discharge Prescriptions: New Acetaminophen Tab [Tylenol] 650 mg PO Q6HR PRN tab PRN Reason: Mild Pain Or Fever > 100.5 Enoxaparin [Lovenox] 30 mg SQ DAILY syringe HYDROcodone/APAP 5-325MG [Ulysses 5-325] 1 each PO Q4HR PRN tab PRN Reason: Moderate Pain Nicotine 14Mg/24Hr Patch [Habitrol] 1 patch TRANSDERM DAILY patch Ondansetron [Zofran] 4 mg IVP Q8HR PRN vial PRN Reason: Nausea And Vomiting traMADol HCl [Ultram] 50 mg PO Q6H PRN tab PRN Reason: Moderate Pain DAPTOmycin [Cubicin] 500 mg IV Q24H vial Docusate [Colace] 100 mg PO DAILY PRN cap PRN Reason: Constipation Lactulose [Cephulac] 20 gm PO TID PRN ml PRN Reason: Constipation Multivitamins, Thera [Multivitamin (formulary)] 1 each PO DAILY@1200 tab Continue traMADol HCL [Tramadol HCl] 50 mg PO TID-W/MEALS PRN PRN Reason: Pain Pregabalin [Lyrica] 300 mg PO BID Cholecalciferol (Vitamin D3) [Vitamin D3] 2,000 unit PO DAILY Biotin 5 mg PO DAILY Ascorbic Acid [Vitamin C] 1,000 mg PO DAILY Cyclobenzaprine [Flexeril] 10 mg PO TID PRN PRN Reason: Muscle Spasm Pyridoxine HCl (Vitamin B6) [Vitamin B-6] 100 mg PO DAILY Discontinued Ibuprofen [Motrin] 800 mg PO TID PRN PRN Reason: Pain Discharge Medication List Pregabalin [Lyrica] 300 mg PO BID 02/17/16 [History] traMADol HCL [Tramadol HCl] 50 mg PO TID-W/MEALS PRN 02/17/16 [History] Acetaminophen Tab [Tylenol] 650 mg PO Q6HR PRN tab 12/14/17 [Rx] Ascorbic Acid [Vitamin C] 1,000 mg PO DAILY 12/14/17 [History] Biotin 5 mg PO DAILY 12/14/17 [History] Cholecalciferol (Vitamin D3) [Vitamin D3] 2,000 unit PO DAILY 12/14/17 [History] Cyclobenzaprine [Flexeril] 10 mg PO TID PRN 12/14/17 [History] Enoxaparin [Lovenox] 30 mg SQ DAILY syringe 12/14/17 [Rx] HYDROcodone/APAP 5-325MG [Ulysses 5-325] 1 each PO Q4HR PRN tab 12/14/17 [Rx] Nicotine 14Mg/24Hr Patch [Habitrol] 1 patch TRANSDERM DAILY patch 12/14/17 [Rx] Ondansetron [Zofran] 4 mg IVP Q8HR PRN vial 12/14/17 [Rx] Pyridoxine HCl (Vitamin B6) [Vitamin B-6] 100 mg PO DAILY 12/14/17 [History] traMADol HCl [Ultram] 50 mg PO Q6H PRN tab 12/14/17 [Rx] DAPTOmycin [Cubicin] 500 mg IV Q24H vial 12/18/17 [Rx] Docusate [Colace] 100 mg PO DAILY PRN cap 12/18/17 [Rx] Lactulose [Cephulac] 20 gm PO TID PRN ml 12/18/17 [Rx] Multivitamins, Thera [Multivitamin (formulary)] 1 each PO DAILY@1200 tab [Rx] Follow up Appointment(s)/Referral(s): [facility], [NON-STAFF] - Shelley Vanessa MD [Primary Care Provider] - 1-2 days Discharge Disposition: OTHER INSTITUTION NOT DEFINED
--- NOTE | 2017-12-20 05:53 | CDI ---
Last Revision, June 2017 Documentation Clarification Form Date: 12/20/2017 12:00:00 AM From: Casie Carter Phone: If you have a question about this query, please contact Ayleen Rahman Head Waiter at [phone] between 8am and 5pm. Admit Date: 12/14/2017 5:01:00 PM Patient Name: Tanya Del Castillo Visit Number: [id number] Discharge Date: 12/18/2017 ATTENTION: The Clinical Documentation Specialists (CDI) and [facility] Coding Staff appreciate your assistance in clarifying documentation. Please respond to the clarification below the line at the bottom and electronically sign. The CDI & [facility] Coding staff will review the response and follow-up if needed. Please note: Queries are made part of the Legal Health Record. If you have any questions, please contact the author of this message via ITS. Dr. Alton Rico Documentation and location in medical record included acute and chronic osteomyelitis. MSSA bacteremia. History/Risk Factors: osteomyelitis Clinical Indicators: WBC/Left Shift 15.8 15.5 14.3 Lactic acid: Blood cultures: MSSA Vitals signs on admission: 98.5 F 111 bpm 18 103/66 99% Other Clinical Indicators: many infections over time Treatment: ID Consult: Antibiotics: Vanco and Rocephin IV Bolus: Other: In your professional opinion, please clarify if these findings signify one of the following conditions, whether the condition is POA, and cause, if known: Condition SIRS, without underlying infectious process Sepsis Severe Sepsis Specify Unable to determine Present on Admission: Yes No MTDD
== END 2017-12-18 13:15 | disposition short-term general hospital (02) | DRG 540 ==
LOC: EC 13:51 → 4MS4W 17:01
PROVIDERS: ADMIT Internal Medicine; ATTEND Internal Medicine
PROC: 05HY33Z Insertion of Infusion Device into Upper Vein, Percutaneous Approach (ICD-10-PCS; principal; 2017-12-17 13:00)
DX: M86.171 Other acute osteomyelitis, right ankle and foot (principal); L02.611 Cutaneous abscess of right foot; L03.115 Cellulitis of right lower limb; L97.516 Non-pressure chronic ulcer of other part of right foot with bone involvement without evidence of necrosis; R78.81 Bacteremia; D84.9 Immunodeficiency, unspecified; B95.61 Methicillin susceptible Staphylococcus aureus infection as the cause of diseases classified elsewhere; D64.9 Anemia, unspecified; E87.6 Hypokalemia; F17.200 Nicotine dependence, unspecified, uncomplicated; F31.9 Bipolar disorder, unspecified; F41.9 Anxiety disorder, unspecified; G89.29 Other chronic pain; M21.371 Foot drop, right foot; M79.7 Fibromyalgia; M86.671 Other chronic osteomyelitis, right ankle and foot; Z82.49 Family history of ischemic heart disease and other diseases of the circulatory system; Z82.5 Family history of asthma and other chronic lower respiratory diseases; Z87.01 Personal history of pneumonia (recurrent); Z88.1 Allergy status to other antibiotic agents; Z88.2 Allergy status to sulfonamides; Z98.1 Arthrodesis status; R53.83 Other fatigue; R74.0 Nonspecific elevation of levels of transaminase and lactic acid dehydrogenase [LDH]
CPT/HCPCS: 36415; 36569; 76937; 80048; 80053; 80202; 82784; 82785; 83605; 84134; 85025; 85652; 86140; 86360; 87040; 87077; 87186; 96361; 96374; 99284

== ENCOUNTER → 2018-08-05 | Outpatient (CLI) | payer OTHER ==
--- NOTE | 2018-08-05 11:13 | USB ---
Reason for exam: clinical finding. History: Family history of breast cancer in paternal grandmother at age 50. Took hormonal contraceptives for 2 years beginning at age 16. Physical Findings: Nurse did not find any significant physical abnormalities on exam. US Breast RT Right complete breast ultrasound includes all four quadrants, the retroareolar region and axilla. Finding demonstrates a 0.7 x 0.3 x 0.9cm cystic cluster at 9 o'clock, fibrocystic change. These results were verbally communicated with the patient and result sheet given to the patient on 08/05/18. ASSESSMENT: Benign, BI-RAD 2 RECOMMENDATION: Routine screening mammogram of both breasts at age 42. Manage on a clinical basis with regard to growing right breast.
== END | disposition home or self-care (01) ==
LOC: RADMAMWWP 10:08
PROVIDERS: ATTEND Obstetrics & Gynecology
DX: N60.19 Diffuse cystic mastopathy of unspecified breast (principal)

== ENCOUNTER → 2019-01-23 | Outpatient (CLI) | payer OTHER ==
--- NOTE | 2019-01-24 12:54 | MR ---
EXAMINATION TYPE: MR foot RT wo/w con DATE OF EXAM: 01/23/2019 COMPARISON: X-rays of the right foot dated 12/14/[address] right foot dated 12/14/2017. HISTORY: Chronic osteomyelitis CONTRAST: Standard multiplanar, multisequence MRI departmental protocol utilizing 5 mL intravenous Gadavist chance olinium contrast. FINDINGS: Susceptibility artifact is generated from surgical fixation screws of the first tarsometata rsal joint. Chronic healed fracture deformities with apex lateral angulation of the second through fo urth metatarsals in the mid to distal diaphyses are seen. There is amputation of the fifth digit and distal phalanx. T1 hypointense and T2 per family hyperintense complex effusion and phlegmonous change s around the anterior talar process and talonavicular joint with very mild bone marrow edema in the n avicular bone and bone marrow replacing edema in the talus. This doesn't demonstrate enhancement and is compatible with multifocal osteomyelitis. There is also some enhancing bone marrow edema in the ba se of the first metatarsal proximally, first cuneiform, second cuneiform, and third cuneiform that de monstrates enhancement also compatible with multifocal osteomyelitis. Abnormal signal is seen within the sinus tarsus. Calcaneus and talar dome appear unaffected as do the distal tibia and fibula. Evalu ation of the tendons and ligaments are markedly suboptimal secondary to some patient motion and surro unding phlegmonous changes. No full-thickness tear is seen of the ligaments of the foot although ther e is nondiagnostic evaluation of the Lisfranc ligament secondary to susceptibility artifact from the arthrodesis. The multiple known osseous fragments at the postsurgical site are suboptimally evaluated given susceptibility artifact. There is circumferential moderate soft tissue swelling of the midfoot . IMPRESSION: Confirmation of multifocal osteomyelitis surrounding the postsurgical site at the first metatarsal me tatarsal joint but also including the first through third cuneiforms, navicular, and anterior talar p rocess. Surrounding phlegmonous changes and complex effusion are seen with extent into the sinus tars us.
== END | disposition home or self-care (01) ==
LOC: RADMRIMAIN 12:29
PROVIDERS: ATTEND Internal Medicine Infectious Disease
DX: M86.371 Chronic multifocal osteomyelitis, right ankle and foot (principal); D89.89 Other specified disorders involving the immune mechanism, not elsewhere classified
CPT/HCPCS: 73720; A9585

== ENCOUNTER → 2019-01-24 | Outpatient (CLI) | payer OTHER ==
--- NOTE | 2019-01-24 14:17 | MR ---
EXAMINATION TYPE: MR foot LT wo/w con DATE OF EXAM: 01/24/2019 COMPARISON: None HISTORY: Chronic osteomyelitis, pain CONTRAST: Standard multiplanar, multisequence MRI per departmental protocol utilizing 5 mL intravenous Gadavist gadolinium contrast. FINDINGS: The bone marrow signal of the left foot appears within normal limits other than slight STIR/T2 hyperi ntense signal of the fourth and fifth metatarsals distally and of the fourth proximal phalanx seconda ry to incomplete fat suppression as no abnormal signal is seen on T1 nonfat sat sequences. Talar dome is intact and unremarkable. Ankle mortise alignment is maintained. No acute fracture or di slocation is seen. No focal soft tissue swelling is evident. The visualized tendons of the extensor a nd flexor compartment as well as the visualized portions of the Achilles tendon and plantar fascia ar e intact and unremarkable in signal. No sizable joint effusion. The anterior talofibular ligament, po sterior talofibular ligament, and deltoid ligament appear intact and unremarkable. Lisfranc ligament appears intact. Very minimal degenerative change of the first metatarsal phalangeal joint is seen wit h mild hallux valgus deformity. IMPRESSION: No MRI evidence of osteomyelitis within the left foot. Incomplete fat suppression somewhat limiting e valuation of the metatarsal phalangeal joints of the fourth and fifth digits and proximal fourth phal anx.
== END | disposition home or self-care (01) ==
LOC: RADMRIMAIN 12:36
PROVIDERS: ATTEND Internal Medicine Infectious Disease
DX: M86.60 Other chronic osteomyelitis, unspecified site (principal); D89.89 Other specified disorders involving the immune mechanism, not elsewhere classified
CPT/HCPCS: 73720; A9585

== ENCOUNTER 2019-03-23 04:09 | Emergency (ER) | payer OTHER ==
[2019-03-23] MEDS ORDERED: HYDROmorphone 1 MG/ML 1 ML SYRINGE IM STA (05:11)
--- NOTE | 2019-03-23 05:34 | XR ---
EXAMINATION TYPE: XR foot complete LT DATE OF EXAM: 03/23/2019 COMPARISON: NONE HISTORY: Pain TECHNIQUE: 3 views FINDINGS: There is plate fusing the first MP joint. Metatarsals are intact. I see no fracture nor dis location. There are no erosions. IMPRESSION: No acute abnormality of the left foot.
--- NOTE | 2019-03-23 06:08 | ED ---
Lower Extremity Injury HPI - General Chief Complaint: Extremity Injury, Lower Stated Complaint: Injury to foot post surgery Time Seen by Provider: 03/23/19 04:42 Source: patient Mode of arrival: wheelchair Limitations: no limitations - History of Present Illness Initial Comments: The patient is a 24-year-old female who presents to the emergency department with complaint of left foot pain. The patient did have bunion surgery on the sixth of this month. It was performed by Dr. Cleary. She states that today her son threw a soft wiffleball and it landed on her foot. It is right at the site of her surgery and therefore she began having excruciating pain. She does take Liberty at home however states this hasn't been helping her symptoms. She has be en ambulatory on the foot. Denies any numbness or tingling in her toes. Denies any additional trauma sustained. There are no alleviating, precipitating or modifying factors - Related Data Home Medications Medication Instructions Recorded Confirmed Pregabalin [Lyrica] 300 mg PO BID 02/17/16 03/24/19 traMADol HCL [Tramadol HCl] 50 mg PO TID-W/MEALS PRN 02/17/16 03/24/19 Biotin 5 mg PO DAILY 12/14/17 03/24/19 Cholecalciferol (Vitamin D3) 2,000 unit PO DAILY 12/14/17 03/24/19 [Vitamin D3] Clindamycin [Cleocin] 300 mg PO Q6H 03/21/19 03/24/19 Doxycycline [Vibramycin] 100 mg PO BID 03/21/19 03/24/19 Ibuprofen [Motrin] 800 mg PO RT-Q8H PRN 03/21/19 03/24/19 Ondansetron [Zofran] 4 mg PO Q8HR PRN 03/21/19 03/24/19 Zolpidem Tartrate [Ambien] 10 mg PO HS PRN 03/21/19 03/24/19 Previous Rx's Medication Instructions Recorded HYDROcodone/APAP 5-325MG [[place] 1 each PO Q4HR PRN tab 12/14/17 5-325] traMADol HCl [Ultram] 50 mg PO Q6H PRN tab 12/14/17 Multivitamins, Thera [Multivitamin 1 each PO DAILY@1200 tab 12/18/17 (formulary)] Allergies Allergy/AdvReac Type Severity Reaction Status Date / Time bacitracin Allergy Mild Rash/Hives Verified 03/24/19 12:01 cephalexin [From Keflex] Allergy Rash/Hives Verified 03/24/19 12:01 sulfamethoxazole Allergy Rash/Hives Verified 03/24/19 12:01 [From Bactrim] trimethoprim [From Bactrim] Allergy Rash/Hives Verified 03/24/19 12:01 vancomycin AdvReac Unknown Verified 03/24/19 12:01 Review of Systems ROS Statement: Those systems with pertinent positive or pertinent negative responses have been documented in the HPI. ROS Other: All systems not noted in ROS Statement are negative. Past Medical History Past Medical History: Fibromyalgia, Osteoarthritis (OA), Pneumonia Additional Past Medical History / Comment(s): carpal tunnel. "hemmerhoids way up in my intestines". poor wound healing MVP, chronic osteomylitis, states "scaring of lungs from pneumonia" History of Any Multi-Drug Resistant Organisms: None Reported Past Surgical History: Orthopedic Surgery Additional Past Surgical History / Comment(s): Multiple eye surgeries for corneal injury, multiple rt foot surgeries, lt bunionectomy, ortho surgery 03/07/2019 Past Anesthesia/Blood Transfusion Reactions: No Reported Reaction Past Psychological History: Anxiety, Bipolar, Depression Smoking Status: Current every day smoker Past Alcohol Use History: None Reported Past Drug Use History: None Reported - Past Family History Mother Family Medical History: Asthma, Hypertension Brother(s) Family Medical History: Asthma General Exam Limitations: no limitations General appearance: alert, in no apparent distress Extremities exam: Present: other (kerlex wraps to the left lower extremity. Surgical site over the first digit. Incision is c/d/i. No pus drainage. No surrounding redness. No ecchymosis. Intact ROM) Course Vital Signs 03/23/19 03/23/19 04:25 06:34 Temperature 97.9 F 97 F L Pulse Rate 77 68 Respiratory 18 14 Rate Blood Pressure 101/63 101/50 O2 Sat by Pulse 100 98 Oximetry Medical Decision Making - Medical Decision Making Upon arrival the patient is placed into room 16. There are history of physical exam is performed. An x-ray of the left foot was performed which demonstrates hardware which appears intact. No acute fractures. I did reevaluate the patient after she was given 1 mg of Dilaudid IM. The patient reports great improvement in her symptoms. She feels comfortable going home at this time. She scheduled to get picc line placed tomorrow for her chronic infections in her lower extremities. She is instructed to do this and follow up with her television installer. The patient has any new or worsening symptoms she should return to the ER. The patient was discharged home in stable condition Disposition Clinical Impression: Foot pain Disposition: HOME SELF-CARE Condition: Stable Instructions (If sedation given, give patient instructions): Foot Contusion (ED) Additional Instructions: Please follow-up with Dr. Barragan. Return to the emergency room for any new or worsening symptoms Is patient prescribed a controlled substance at d/c from ED?: No Referrals: Sarah Ledezma MD [Primary Care Provider] - 1-2 days Time of Disposition: 06:08
[2019-03-23 06:36] VITALS: BP 101/50; PULSE 68; RESP 14; TEMP 97
== END 2019-03-23 06:25 | disposition home or self-care (01) ==
LOC: EC 04:09
DX: M79.672 Pain in left foot (principal); S99.822A Other specified injuries of left foot, initial encounter; L08.9 Local infection of the skin and subcutaneous tissue, unspecified; F41.9 Anxiety disorder, unspecified; F31.9 Bipolar disorder, unspecified; M79.7 Fibromyalgia; M19.90 Unspecified osteoarthritis, unspecified site; F17.200 Nicotine dependence, unspecified, uncomplicated; Z79.899 Other long term (current) drug therapy; Z88.8 Allergy status to other drugs, medicaments and biological substances; Z88.2 Allergy status to sulfonamides; Z88.1 Allergy status to other antibiotic agents; Z98.890 Other specified postprocedural states; W21.09XA Struck by other hit or thrown ball, initial encounter
CPT/HCPCS: 96372; 99283; 73630; J1170

== ENCOUNTER 2019-03-24 11:40 | Day surgery (SDC) | payer OTHER ==
[2019-03-21 12:21] VITALS: BMI 21.4
[2019-03-24 12:13] VITALS: BP 112/76; PULSE 75; RESP 16; TEMP 97.7
[2019-03-24] MEDS ORDERED: LIDOCAINE 1% INJ 10MG/ML (20 ML MDV) ONE (13:44)
[2019-03-24] MEDS ORDERED: LIDOCAINE 1% INJ 10MG/ML (20 ML MDV) SQ ONE (13:57)
[2019-03-24] MEDS ORDERED: IOPAMIDOL-250 50ML BTL IV ONE (14:02)
--- NOTE | 2019-03-25 12:25 | IR ---
EXAMINATION TYPE: IR cvc insert >=5 years and left upper extremity venogram DATE OF EXAM: 03/24/2019 COMPARISON: NONE CLINICAL HISTORY: Infection Needs long-term intravenous access for antibiotics. PROCEDURE: After informed consent, the skin overlying the left brachial vein was localized with ultrasound and n oted to be compressible and patent. An ultrasound image was obtained and submitted on the patient's chart. The overlying skin was prepped and draped and Lidocaine was used for local anesthesia. A ski n juan carlos was made with a scalpel. Access was gained to the vein under ultrasound guidance with a 21 ga uge needle and a 0.018 inch wire was advanced. The wire could not be advanced centrally. 3 Uzbek dil ator was advanced over the wire and general hand injection of contrast material was performed with at tention to the left subclavian vein. Based on the findings the left upper extremity approach was abor eliseo. The dilator was removed and hemostasis achieved. Using similar technique attention directed to the right basilic vein. Access was gained under direct ultrasound guidance following notation that the vein was compressible and patent and an ultrasound im age was obtained and submitted on patient's chart. 0.018 inch wire was advanced through the 21-gauge needle. Access site was dilated with Peel-Away sheath and catheter tailored to the appropriate length and advanced such that the distal tip is at the cavoatrial junction. Spot image was obtained verify ing placement. Catheter was fixed to the skin and a sterile dressing was placed following hemostasis . Catheter was aspirated and flushed with saline. Patient was discharged in stable condition withou t complication. Maximal barrier technique is utilized. Ultrasound image is documented on the chart. Ultrasound used with sterile technique. FINDINGS: There is a central left subclavian stenosis possibly due to prior catheter placement. Colla teral vessel is noted likely due to hemodynamic significant stenosis of the subclavian vein. Fluoro time and fluoroscopic images submitted to document procedure: 1 minute fluoroscopy time, great er 17 intraoperative C-arm images IMPRESSION: STATUS POST ULTRASOUND AND FLUOROSCOPIC GUIDED PICC LINE PLACEMENT, READY FOR USE. THIS PROCEDURE WAS PERFORMED BY THE UNDERSIGNED. Central left subclavian vein stenosis.
== END 2019-03-24 14:42 | disposition home or self-care (01) ==
LOC: CATHCVL 11:40
PROVIDERS: ATTEND Radiology Diagnostic Radiology
DX: T81.42XA Infection following a procedure, deep incisional surgical site, initial encounter (principal); B99.9 Unspecified infectious disease; Z88.1 Allergy status to other antibiotic agents; Z88.2 Allergy status to sulfonamides; M79.7 Fibromyalgia; I87.1 Compression of vein; Z87.01 Personal history of pneumonia (recurrent); M19.90 Unspecified osteoarthritis, unspecified site; M86.60 Other chronic osteomyelitis, unspecified site; F32.9 Major depressive disorder, single episode, unspecified; G62.9 Polyneuropathy, unspecified; Z72.0 Tobacco use; F12.10 Cannabis abuse, uncomplicated; Z79.1 Long term (current) use of non-steroidal anti-inflammatories (NSAID); Z79.891 Long term (current) use of opiate analgesic; Z79.899 Other long term (current) drug therapy
CPT/HCPCS: 36573; 75820; C1751; C1769; J2001; Q9966; 36005

== ENCOUNTER 2019-05-03 16:59 | Emergency (ER) | payer OTHER ==
[2019-05-03 17:04] VITALS: BP 109/67; PULSE 109; RESP 18; TEMP 98
--- NOTE | 2019-05-03 18:31 | ED ---
General Adult HPI - General Chief complaint: Recheck/Abnormal Lab/Rx Stated complaint: Hand injury Time Seen by Provider: 05/03/19 17:08 Source: patient, RN notes reviewed, old records reviewed Mode of arrival: ambulatory Limitations: physical limitation - History of Present Illness Initial comments: Patient is a 22-year-old female presents for his first today with PICC line malfunction. Patient reports she woke up and her PICC line was pulled. She states that she used packing tape to apply a dressing over it until she can follow-up here. She states that her visiting nurse has not come in approximately one week but told to come to the emergency room. She supposed receiving IV daptomycin for a wound over her right foot that is chronic. She a lso complains of an abrasion over her right index finger. Patient states that she is scheduled to have a new PICC line placed on Sunday. - Related Data Home Medications Medication Instructions Recorded Confirmed Pregabalin [Lyrica] 300 mg PO BID 02/17/16 03/24/19 traMADol HCL [Tramadol HCl] 50 mg PO TID-W/MEALS PRN 02/17/16 03/24/19 Biotin 5 mg PO DAILY 12/14/17 03/24/19 Cholecalciferol (Vitamin D3) 2,000 unit PO DAILY 12/14/17 03/24/19 [Vitamin D3] Clindamycin [Cleocin] 300 mg PO Q6H 03/21/19 03/24/19 Doxycycline [Vibramycin] 100 mg PO BID 03/21/19 03/24/19 Ibuprofen [Motrin] 800 mg PO RT-Q8H PRN 03/21/19 03/24/19 Ondansetron [Zofran] 4 mg PO Q8HR PRN 03/21/19 03/24/19 Zolpidem Tartrate [Ambien] 10 mg PO HS PRN 03/21/19 03/24/19 Previous Rx's Medication Instructions Recorded HYDROcodone/APAP 5-325MG [[place] 1 each PO Q4HR PRN tab 12/14/17 5-325] traMADol HCl [Ultram] 50 mg PO Q6H PRN tab 12/14/17 Multivitamins, Thera [Multivitamin 1 each PO DAILY@1200 tab 12/18/17 (formulary)] Allergies Allergy/AdvReac Type Severity Reaction Status Date / Time bacitracin Allergy Mild Rash/Hives Verified 05/03/19 17:04 cephalexin [From Keflex] Allergy Rash/Hives Verified 05/03/19 17:04 sulfamethoxazole Allergy Rash/Hives Verified 05/03/19 17:04 [From Bactrim] trimethoprim [From Bactrim] Allergy Rash/Hives Verified 05/03/19 17:04 vancomycin AdvReac Unknown Verified 05/03/19 17:04 Review of Systems ROS Statement: Those systems with pertinent positive or pertinent negative responses have been documented in the HPI. ROS Other: All systems not noted in ROS Statement are negative. Past Medical History Past Medical History: Fibromyalgia, Osteoarthritis (OA), Pneumonia Additional Past Medical History / Comment(s): carpal tunnel. "hemorrhoids way up in my intestines". 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 Date of last positivie culture/infection: 2018 MDRO Source:: foot Past Surgical History: Orthopedic Surgery Additional Past Surgical History / Comment(s): Multiple eye surgeries for corneal injury, multiple rt foot surgeries, lt bunionectomy, ortho surgery 03/07/2019 Past Anesthesia/Blood Transfusion Reactions: No Reported Reaction Past Psychological History: Anxiety, Bipolar, Depression Smoking Status: Current every day smoker Past Alcohol Use History: None Reported Past Drug Use History: None Reported - Past Family History Mother Family Medical History: Asthma, Hypertension Brother(s) Family Medical History: Asthma General Exam - General Exam Comments Initial Comments: 24-year-old female appears in no acute distress. Limitations: physical limitation General appearance: alert Head exam: Present: atraumatic, normocephalic, normal inspection Eye exam: Present: normal appearance, PERRL, EOMI. Absent: scleral icterus, conjunctival injection, periorbital swelling ENT exam: Present: normal exam, mucous membranes moist Neck exam: Present: normal inspection. Absent: tenderness, meningismus, lymphadenopathy Respiratory exam: Present: normal lung sounds bilaterally. Absent: respiratory distress, wheezes, rales, rhonchi, stridor Cardiovascular Exam: Present: regular rate, normal rhythm, normal heart sounds. Absent: systolic murmur, diastolic murmur, rubs, gallop, clicks GI/Abdominal exam: Present: soft, normal bowel sounds. Absent: distended, tenderness, guarding, rebound, rigid Extremities exam: Present: normal inspection, full ROM, normal capillary refill, other (She has a cast of her right lower extremity.). Absent: tenderness, pedal edema, joint swelling, calf tenderness Right Upper Arm exam: Absent: normal inspection (Patient's PICC line is happily removed. The hubs is out by 20 cm.) Elbow exam: Present: normal inspection, full ROM Forearm Wrist exam: Present: normal inspection, full ROM Hand Wrist exam: Present: normal inspection, full ROM Neuro motor exam: Present: wrist extension intact, thumb opposition intact Back exam: Present: normal inspection Neurological exam: Present: alert, oriented X3, CN II-XII intact Psychiatric exam: Present: normal affect, normal mood Course Vital Signs 05/03/19 17:01 Temperature 98.0 F Pulse Rate 109 H Respiratory 18 Rate Blood Pressure 109/67 O2 Sat by Pulse 99 Oximetry Medical Decision Making - Medical Decision Making 22-year-old female presents today for PICC line malfunction. She woke up and it was pulled [facility] of her [facility]. Patient's was out approximately 20 cm and discuss it is not contaminated and the PICC line needs to be removed. I did remove the PICC line in pressure is applied no further bleeding was done, hemostasis controlled. Patient was advised that we could admit the Patient for IV antibiotics that she does not have a functioning PICC line for the weekend. She states she will not be admitted, and refuses to be admitted to the hospital, but will call on Sunday to have a new PICC line placed. She also has a small abrasion on her finger on the right index and this was bandaged with a Band-Aid and antibiotic ointment. I discussed reports that she has to follow-up with out patient CT and a new PICC line placed and to return to the emergency department if any alarming signs or symptoms occur. Disposition Clinical Impression: Finger abrasion, PIC line (peripherally inserted central catheter) removal Disposition: HOME SELF-CARE Condition: Good Instructions (If sedation given, give patient instructions): Abrasion (ED) Additional Instructions: On Sunday for another appointment to have a new PICC line inserted. Patient should put antibiotic ointment over the fingertip, and allow the wound to heal. He should let the wound dry from time to time to make sure that the skin is not constantly wet. Is patient prescribed a controlled substance at d/c from ED?: No Referrals: Piter Mcdaniels MD [Primary Care Provider] - 1-2 days Time of Disposition: 18:31
== END 2019-05-03 18:56 | disposition home or self-care (01) ==
LOC: EC 16:59
DX: S60.410A Abrasion of right index finger, initial encounter (principal); Z45.2 Encounter for adjustment and management of vascular access device; F17.200 Nicotine dependence, unspecified, uncomplicated; Z79.899 Other long term (current) drug therapy; Z88.1 Allergy status to other antibiotic agents; Z88.2 Allergy status to sulfonamides; X58.XXXA Exposure to other specified factors, initial encounter
CPT/HCPCS: 99283

== ENCOUNTER 2019-05-05 10:40 | Day surgery (SDC) | payer OTHER ==
[2019-05-05 15:26] VITALS: BP 131/73; PULSE 75; RESP 16; TEMP 98.1
--- NOTE | 2019-05-05 15:56 | IR ---
PICC LINE PLACEMENT: HISTORY: Infection requiring long-term antibiotic therapy PROCEDURE: Ultrasound and fluoroscopic guidance of PICC line placement. COMPLICATIONS: None ANESTHESIA: 1. 1% Lidocaine locally. FINDINGS/TECHNIQUE: The procedure was explained to the patient. The risks, complications, benefits and alternatives were discussed and any questions were answered. Informed consent was obtained. The patient was placed supine on the fluoroscopic table and prepped and draped in the usual sterile fash ion. Utilizing a 21 gauge needle and sonographic and fluoroscopic guidance, access in the left basi lic vein was achieved and there is placement of a 0.018 guidewire. The vein is patent. A 4-F sheath was placed over the guidewire. The guidewire and dilator were removed and a 4-F. PICC line was plac ed through the sheath with the tip at the level of the SVC. The sheath was removed, the catheter was flushed and sutured into position. The patient was stable throughout the procedure and remained sta ble upon discharge from the Department of Radiology. The vein puncture was patent under ultrasound. A khanna scale image was obtained to document patency of the vein punctured. All elements of the maximal barrier technique were utilized. FLUOROSCOPY TIME: 02.2 minutes and one image submitted IMPRESSION: Successful PICC line placement under ultrasound and fluoroscopic guidance.
== END 2019-05-05 13:00 | disposition home or self-care (01) ==
LOC: CATHCVL 10:40
PROVIDERS: ATTEND Radiology Diagnostic Radiology
DX: M86.60 Other chronic osteomyelitis, unspecified site (principal); M19.90 Unspecified osteoarthritis, unspecified site; F32.9 Major depressive disorder, single episode, unspecified; G62.9 Polyneuropathy, unspecified; Z87.01 Personal history of pneumonia (recurrent); F17.210 Nicotine dependence, cigarettes, uncomplicated; Z79.891 Long term (current) use of opiate analgesic; Z79.899 Other long term (current) drug therapy; Z88.1 Allergy status to other antibiotic agents; Z88.2 Allergy status to sulfonamides
CPT/HCPCS: 36573; 81025; C1751; C1769 ×2

== ENCOUNTER 2019-06-24 21:41 | Emergency (ER) | payer OTHER ==
[2019-06-24 21:50] VITALS: BP 102/68; PULSE 83; RESP 18; TEMP 98
[2019-06-24] MEDS ORDERED: SODIUM CHLORIDE 0.9% 1,000 ML IV STA (22:13)
[2019-06-24] MEDS ORDERED: ONDANSETRON 4 MG/2 ML VIAL IVP STA (22:13)
[2019-06-24] MEDS ORDERED: MAG HYDROX/AL HYDROX/SIMETH 30 ML, HYOSCYAMINE ELIXIR 10 ML, LIDOCAINE VISCOUS 2% 10 ML PO STA ×3 (22:15)
--- NOTE | 2019-06-24 22:22 | ED ---
Abdominal Pain HPI - General Chief Complaint: Abdominal Pain Stated Complaint: Abd pain Time Seen by Provider: 06/24/19 21:52 Source: patient Mode of arrival: ambulatory Limitations: no limitations - History of Present Illness Initial Comments: patient is 24-year-old female with history of her mild presenting to emergency Department with a chief complaint of abdominal pain. She reports the pain has been coming on and off for the past year. patient reports the pain is located in the left upper quadrant and is worse in the morning. She reports that over the last week she has been drinking more alcohol than usual. She is a heavy coffee drinker as well. Patient reports previous time she is noted the pain is exacerbated after she takes ibuprofen for prolonged period of time. Denies any nausea or vomiting or diarrhea. Patient complaining of increased urgency, frequency and dysuria which has been ongoing for a month. She is currently on her menstrual period. Denies hematuria, hematochezia or melena. Denies night sweats fevers or chills. Never been officially diagnosed with GERD. patient denies asthma but does smoke a wax pen. - Related Data Home Medications Medication Instructions Recorded Confirmed Pregabalin [Lyrica] 300 mg PO BID 02/17/16 03/24/19 traMADol HCL [Tramadol HCl] 50 mg PO TID-W/MEALS PRN 02/17/16 03/24/19 Biotin 5 mg PO DAILY 12/14/17 03/24/19 Cholecalciferol (Vitamin D3) 2,000 unit PO DAILY 12/14/17 03/24/19 [Vitamin D3] Clindamycin [Cleocin] 300 mg PO Q6H 03/21/19 03/24/19 Doxycycline [Vibramycin] 100 mg PO BID 03/21/19 03/24/19 Ibuprofen [Motrin] 800 mg PO RT-Q8H PRN 03/21/19 03/24/19 Ondansetron [Zofran] 4 mg PO Q8HR PRN 03/21/19 03/24/19 Zolpidem Tartrate [Ambien] 10 mg PO HS PRN 03/21/19 03/24/19 Previous Rx's Medication Instructions Recorded HYDROcodone/APAP 5-325MG [[place] 1 each PO Q4HR PRN tab 12/14/17 5-325] traMADol HCl [Ultram] 50 mg PO Q6H PRN tab 12/14/17 Multivitamins, Thera [Multivitamin 1 each PO DAILY@1200 tab 12/18/17 (formulary)] Albuterol Inhaler [Ventolin Hfa 1 - 2 puff INHALATION RT-Q6H PRN 06/24/19 Inhaler] #1 inhaler Nitrofurantoin Monohyd/M-Cryst 100 mg PO Q12HR #14 cap 06/24/19 [Macrobid] Allergies Allergy/AdvReac Type Severity Reaction Status Date / Time bacitracin Allergy Mild Rash/Hives Verified 05/03/19 17:04 cephalexin [From Keflex] Allergy Rash/Hives Verified 05/03/19 17:04 sulfamethoxazole Allergy Rash/Hives Verified 05/03/19 17:04 [From Bactrim] trimethoprim [From Bactrim] Allergy Rash/Hives Verified 05/03/19 17:04 vancomycin AdvReac Unknown Verified 05/03/19 17:04 Review of Systems ROS Statement: Those systems with pertinent positive or pertinent negative responses have been documented in the HPI. ROS Other: All systems not noted in ROS Statement are negative. Past Medical History Past Medical History: Fibromyalgia, Osteoarthritis (OA), Pneumonia Additional Past Medical History / Comment(s): carpal tunnel. "hemorrhoids way up in my intestines". 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 Date of last positivie culture/infection: 2018 MDRO Source:: foot Past Surgical History: Orthopedic Surgery Additional Past Surgical History / Comment(s): Multiple eye surgeries for corneal injury, multiple rt foot surgeries, lt bunionectomy, ortho surgery 03/07/2019 Past Anesthesia/Blood Transfusion Reactions: No Reported Reaction Past Psychological History: Anxiety, Bipolar, Depression Smoking Status: Current every day smoker Past Alcohol Use History: Occasional Past Drug Use History: Marijuana - Past Family History Mother Family Medical History: Asthma, Hypertension Brother(s) Family Medical History: Asthma General Exam Limitations: no limitations General appearance: alert, in no apparent distress Head exam: Present: atraumatic, normocephalic, normal inspection Eye exam: Present: normal appearance, PERRL, EOMI Pupils: Present: normal accommodation ENT exam: Present: normal exam, normal oropharynx, mucous membranes moist, TM's normal bilaterally, normal external ear exam Neck exam: Present: normal inspection, full ROM Respiratory exam: Present: wheezes (bilateral) Cardiovascular Exam: Present: regular rate, normal rhythm, normal heart sounds GI/Abdominal exam: Present: soft, tenderness (left upper quadrant), normal bowel sounds. Absent: distended, guarding, rebound ( tenderness.), rigid Extremities exam: Present: normal inspection, full ROM, normal capillary refill Back exam: Present: normal inspection, full ROM, CVA tenderness (L) Neurological exam: Present: alert, oriented X3 Psychiatric exam: Present: normal affect, normal mood Skin exam: Present: warm, dry, intact, normal color Course Vital Signs 06/24/19 21:46 Temperature 98.0 F Pulse Rate 83 Respiratory 18 Rate Blood Pressure 102/68 O2 Sat by Pulse 99 Oximetry Medical Decision Making - Medical Decision Making Patient is a 24-year-old female presenting to emergency Department with a chief complaint of left upper quadrant abdominal pain. On exam patient has left CVA tenderness with left upper quadrant abdominal pain. Auscultation patient does have some expiratory wheezes. Although, she states this is her baseline. Chest x-ray unremarkable. CBC and CMP unremarkable. UA shows positive nitrates with white blood cells and leukocyte esterase. Patient does appear to have a urinary tract infection. Patient given Rocephin in the ED. Patient had previously tolerated this antibiotic. Patient will also be discharged with 10 days' worth of outpatient antibiotics. Strict return parameters were thoroughly discussed with patient is understanding and agreeable. Case discussed with physician. - Lab Data Result diagrams: 06/24/19 22:20 06/24/19 22:20 Lab Results 06/24/19 06/24/19 06/24/19 Range/Units 22:20 22:20 22:20 WBC 9.0 (3.8-10.6) k/uL RBC 4.30 (3.80-5.40) m/uL Hgb 12.8 (11.4-16.0) gm/dL Hct 39.2 (34.0-46.0) % MCV 91.1 (80.0-100.0) fL MCH 29.7 (25.0-35.0) pg MCHC 32.6 (31.0-37.0) g/dL RDW 13.0 (11.5-15.5) % Plt Count 255 (150-450) k/uL Neutrophils % 52 % Lymphocytes % 38 % Monocytes % 6 % Eosinophils % 1 % Basophils % 1 % Neutrophils # 4.7 (1.3-7.7) k/uL Lymphocytes # 3.5 (1.0-4.8) k/uL Monocytes # 0.5 (0-1.0) k/uL Eosinophils # 0.1 (0-0.7) k/uL Basophils # 0.1 (0-0.2) k/uL Sodium 138 (137-145) mmol/L Potassium 4.1 (3.5-5.1) mmol/L Chloride 104 (98-107) mmol/L Carbon Dioxide 29 (22-30) mmol/L Anion Gap 5 mmol/L BUN 13 (7-17) mg/dL Creatinine 1.04 (0.52-1.04) mg/dL Est GFR (CKD-EPI)AfAm 89 (>60 ml/min/1.73 sqM) Est GFR (CKD-EPI)NonAf 77 (>60 ml/min/1.73 sqM) Glucose 78 (74-99) mg/dL Calcium 9.9 (8.4-10.2) mg/dL Total Bilirubin 0.5 (0.2-1.3) mg/dL AST 30 (14-36) U/L ALT 11 (4-34) U/L Alkaline Phosphatase 72 (38-126) U/L Total Protein 7.1 (6.3-8.2) g/dL Albumin 4.4 (3.5-5.0) g/dL Amylase 38 (30-110) U/L Lipase 50 (23-300) U/L Urine Color Urine Appearance (Clear) Urine pH (5.0-8.0) Ur Specific [place] (1.001-1.035) Urine Protein (Negative) Urine Glucose (UA) (Negative) Urine Ketones (Negative) Urine Blood (Negative) Urine Nitrite (Negative) Urine Bilirubin (Negative) Urine Urobilinogen (<2.0) mg/dL Ur Leukocyte Esterase (Negative) Urine RBC (0-5) /hpf Urine WBC (0-5) /hpf Urine WBC Clumps (None) /hpf Ur Squamous Epith Cells (0-4) /hpf Amorphous Sediment (None) /hpf Urine Bacteria (None) /hpf Hyaline Casts (0-2) /lpf Urine Mucus (None) /hpf Urine HCG, Qual Not Detected (Not Detectd) 06/24/19 Range/Units 22:20 WBC (3.8-10.6) k/uL RBC (3.80-5.40) m/uL Hgb (11.4-16.0) gm/dL Hct (34.0-46.0) % MCV (80.0-100.0) fL MCH (25.0-35.0) pg MCHC (31.0-37.0) g/dL RDW (11.5-15.5) % Plt Count (150-450) k/uL Neutrophils % % Lymphocytes % % Monocytes % % Eosinophils % % Basophils % % Neutrophils # (1.3-7.7) k/uL Lymphocytes # (1.0-4.8) k/uL Monocytes # (0-1.0) k/uL Eosinophils # (0-0.7) k/uL Basophils # (0-0.2) k/uL Sodium (137-145) mmol/L Potassium (3.5-5.1) mmol/L Chloride (98-107) mmol/L Carbon Dioxide (22-30) mmol/L Anion Gap mmol/L BUN (7-17) mg/dL Creatinine (0.52-1.04) mg/dL Est GFR (CKD-EPI)AfAm (>60 ml/min/1.73 sqM) Est GFR (CKD-EPI)NonAf (>60 ml/min/1.73 sqM) Glucose (74-99) mg/dL Calcium (8.4-10.2) mg/dL Total Bilirubin (0.2-1.3) mg/dL AST (14-36) U/L ALT (4-34) U/L Alkaline Phosphatase (38-126) U/L Total Protein (6.3-8.2) g/dL Albumin (3.5-5.0) g/dL Amylase (30-110) U/L Lipase (23-300) U/L Urine Color Yellow Urine Appearance Cloudy H (Clear) Urine pH 6.5 (5.0-8.0) Ur Specific [place] 1.021 (1.001-1.035) Urine Protein 2+ H (Negative) Urine Glucose (UA) Negative (Negative) Urine Ketones Negative (Negative) Urine Blood Negative (Negative) Urine Nitrite Positive H (Negative) Urine Bilirubin Negative (Negative) Urine Urobilinogen <2.0 (<2.0) mg/dL Ur Leukocyte Esterase Large H (Negative) Urine RBC <1 (0-5) /hpf Urine WBC 64 H (0-5) /hpf Urine WBC Clumps Moderate H (None) /hpf Ur Squamous Epith Cells 2 (0-4) /hpf Amorphous Sediment Occasional H (None) /hpf Urine Bacteria Moderate H (None) /hpf Hyaline Casts 3 H (0-2) /lpf Urine Mucus Few H (None) /hpf Urine HCG, Qual (Not Detectd) Disposition Clinical Impression: Urinary tract infection Disposition: HOME SELF-CARE Condition: Stable Instructions (If sedation given, give patient instructions): Urinary Tract Infection in Women (DC) Additional Instructions: Take prescribed medication as directed. Return to emergency department if symptoms worsen. Follow-up with primary care. Prescriptions: Nitrofurantoin Monohyd/M-Cryst [Macrobid] 100 mg PO Q12HR #14 cap Albuterol Inhaler [Ventolin Hfa Inhaler] 1 - 2 puff INHALATION RT-Q6H PRN #1 inhaler PRN Reason: Shortness Of Breath Is patient prescribed a controlled substance at d/c from ED?: No Referrals: Piter Mcdaniels MD [Primary Care Provider] - 1-2 days Time of Disposition: 23:40
[2019-06-24 22:47] LABS: Albumin 4.4 g/dL (3.5-5.0); Calcium 9.9 mg/dL (8.4-10.2); Potassium 4.1 mmol/L (3.5-5.1); Total Bilirubin 0.5 mg/dL (0.2-1.3); Total Protein 7.1 g/dL (6.3-8.2)
[2019-06-24 22:49] LABS: Amorphous Sediment,Urine Occasional /hpf; Appearance,Urine Cloudy (Clear); Bacteria,Urine Moderate /hpf; Bilirubin,Urine Negative (Negative); Blood,Urine Negative (Negative); Color,Urine Yellow; Glucose,Urine (UA) Negative (Negative); Hyaline Casts,Urine 3 /lpf (0-2); Ketones,Urine Negative (Negative); Leukocyte Esterase,Urine Large (Negative); Mucus,Urine Few /hpf; Nitrite,Urine Positive (Negative); PH, Urine 6.5 (5.0-8.0); Protein,Urine 2+ (Negative); RBC,Urine <1 /hpf (0-5); Specific Gravity,Urine 1.021 (1.001-1.035); Squamous Epithelial Cell,Urine 2 /hpf (0-4); Urobilinogen,Urine <2.0 mg/dL (<2.0); WBC,Urine 64 /hpf (0-5)
[2019-06-24 22:54] LABS: Basophils # (A) 0.1 k/uL (0-0.2); Basophils % (A) 1 %; Eosinophils # (A) 0.1 k/uL (0-0.7); Eosinophils % (A) 1 %; HCT 39.2 % (34.0-46.0); HGB 12.8 gm/dL (11.4-16.0); Lymphocytes # (A) 3.5 k/uL (1.0-4.8); Lymphocytes % (A) 38 %; MCH 29.7 pg (25.0-35.0); MCHC 32.6 g/dL (31.0-37.0); MCV 91.1 fL (80.0-100.0); Mean Platelet Volume 8.3; Monocytes # (A) 0.5 k/uL (0-1.0); Monocytes % (A) 6 %; Neutrophils # (A) 4.7 k/uL (1.3-7.7); Neutrophils % (A) 52 %; Platelet Count 255 k/uL (150-450)
[2019-06-24] MEDS ORDERED: cefTRIAXone IN SWFI 1,000 MG/10 ML SYRINGE IVP STA (22:57)
--- NOTE | 2019-06-24 23:19 | XR ---
EXAMINATION TYPE: XR chest 2V DATE OF EXAM: 06/24/2019 COMPARISON: 02/24/2016 HISTORY: Wheezing TECHNIQUE: 2 views FINDINGS: Heart and mediastinum are normal. Lungs are clear. Diaphragm is normal. Bony thorax appears normal. IMPRESSION: Normal chest. No change.
[2019-06-24] MEDS ORDERED: predniSONE 20 MG TAB PO STA (23:24)
== END 2019-06-24 23:49 | disposition home or self-care (01) ==
LOC: EC 21:41
DX: N39.0 Urinary tract infection, site not specified (principal); R06.2 Wheezing; M79.7 Fibromyalgia; M19.90 Unspecified osteoarthritis, unspecified site; F41.9 Anxiety disorder, unspecified; F17.200 Nicotine dependence, unspecified, uncomplicated; Z86.14 Personal history of Methicillin resistant Staphylococcus aureus infection; Z79.891 Long term (current) use of opiate analgesic; Z79.899 Other long term (current) drug therapy; Z88.1 Allergy status to other antibiotic agents; Z88.2 Allergy status to sulfonamides; Z53.8 Procedure and treatment not carried out for other reasons
CPT/HCPCS: 36415; 80053; 82150; 83690; 85025; 81001; 81025; 87086; 71046; 99284; 96365; 96375; 96361; J2405; J0696

== ENCOUNTER 2020-11-24 21:02 | Emergency (ER) | payer OTHER ==
[2020-11-24 21:13] VITALS: BP 116/76; PULSE 108; RESP 18; TEMP 98.5
[2020-11-24] MEDS ORDERED: Acetaminophen-Codeine 300-30mg TAB PO STA (21:28)
[2020-11-24] MEDS ORDERED: IBUPROFEN 600 MG TAB PO STA (21:28)
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
--- NOTE | 2020-11-24 21:54 | XR ---
EXAMINATION TYPE: XR elbow complete LT DATE OF EXAM: 11/24/2020 COMPARISON: NONE HISTORY: Pain TECHNIQUE: 3 views FINDINGS: I see no fracture nor dislocation. Joint spaces are normal. There is no sign of elbow joint effusion. IMPRESSION: Negative left elbow exam.
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
[2020-11-24] MEDS ORDERED: LIDOCAINE 1% INJ 10MG/ML (20 ML MDV) SQ ONE (23:11)
== END 2020-11-24 23:33 | disposition home or self-care (01) ==
LOC: EC 21:02
DX: S51.012A Laceration without foreign body of left elbow, initial encounter (principal); S61.214A Laceration without foreign body of right ring finger without damage to nail, initial encounter; F17.200 Nicotine dependence, unspecified, uncomplicated; M19.90 Unspecified osteoarthritis, unspecified site; M79.7 Fibromyalgia; Z88.1 Allergy status to other antibiotic agents; Z88.2 Allergy status to sulfonamides; Z79.891 Long term (current) use of opiate analgesic; Z79.899 Other long term (current) drug therapy; Y04.8XXA Assault by other bodily force, initial encounter; Y92.009 Unspecified place in unspecified non-institutional (private) residence as the place of occurrence of the external cause
CPT/HCPCS: 99283